=== PATIENT | female | born 1960 | race Caucasian/White ===

== ENCOUNTER 2021-01-22 14:59 | Inpatient (IN) | payer MEDICARE, MEDICAID ==
[~2021-01-22] VITALS: Ht 157.5 cm; Wt 45.0 kg
[2021-01-22] MEDS ORDERED: ONDANSETRON PF 4 MG/2 ML VIAL. IVP PRN (17:30)
[2021-01-22] MEDS ORDERED: fentaNYL PF VIAL 100 MCG/2 ML VIAL IVP PRN (17:30)
[2021-01-22 17:34] VITALS: BP 128/62
[2021-01-22 18:20] LABS: BASO % 0 % (0-3); EOS % 0 % (0-3); HEMATOCRIT 21.5 % (36.0-47.0); LYMPH # 0.4 x10^3/uL (1.0-4.8); LYMPH % 5 % (24-48); MEAN CORPUSCULAR HEMOGLOBIN 27 pg (25-35); MEAN CORPUSCULAR HGB CONC 32 g/dL (31-37); MEAN CORPUSCULAR VOLUME 87 fL (79-100); MONO # 0.6 x10^3/uL (0.0-1.1); MONO % 8 % (0-9); NEUT # 7.4 x10^3/uL (1.8-7.7); NEUT % 87 % (31-73); PLATELET COUNT 524 x10^3/uL (140-400); RED BLOOD COUNT 2.47 x10^6/uL (3.50-5.40); RED CELL DISTRIBUTION WIDTH 18.4 % (11.5-14.5); WHITE BLOOD COUNT 8.5 x10^3/uL (4.0-11.0)
[2021-01-22] MEDS: IV RINGERS,LACTATED 1000ML 1,000 ML IV SCH (18:24)
[2021-01-22] MEDS: PIPERACILLIN/TAZOBACTAM 3.375 GM in IV NORMAL SALINE 50ML 50 ML IV SCH (18:25)
[2021-01-22 18:32] LABS: CALCIUM 8.2 mg/dL (8.5-10.1); CREATININE 0.5 mg/dL (0.6-1.0); GFR 125.9; POTASSIUM 3.6 mmol/L (3.5-5.1)
[2021-01-22 18:37] LABS: HEMOGLOBIN 6.8 g/dL (12.0-15.5)
[2021-01-22 19:00] VITALS: BP 111/57
[2021-01-22] MEDS ORDERED: FOLI0.8C PO (19:25)
[2021-01-22] MEDS ORDERED: MORP15TA PO (19:25)
[2021-01-22 19:33] LABS: % BASOS 1 % (0-3); % LYMPHS 8 % (24-48); % MONOS 9 % (0-10); % SEGS 82 % (35-66)
[2021-01-22 19:35] LABS: PLT ESTIMATE INCREASED (ADEQUATE)
[2021-01-22 19:38] LABS: ANISOCYTOSIS SLIGHT
[2021-01-22 19:39] LABS: POLYCHROMASIA SLIGHT
[2021-01-22 19:40] LABS: MICROCYTOSIS SLIGHT
[2021-01-22] MEDS: PANTOPRAZOLE IV PUSH 40 MG VIAL. IVP SCH (21:07)
[2021-01-22 23:11] VITALS: BP 102/74
[2021-01-22 23:20] VITALS: BP 132/59
[2021-01-22 23:35] VITALS: BP 150/49
[2021-01-23] VITALS (8 sets, daily range): BP systolic 111–152; BP diastolic 57–103
[2021-01-23] MEDS: IV RINGERS,LACTATED 1000ML 1,000 ML IV SCH ×3 (04:00→23:27)
[2021-01-23] MEDS: PIPERACILLIN/TAZOBACTAM 3.375 GM in IV NORMAL SALINE 50ML 50 ML IV SCH ×5 (06:00→23:27)
[2021-01-23] MEDS: AZITHROMYCIN 250 MG in IV NORMAL SALINE 250ML 250 ML IV SCH (06:30)
[2021-01-23 06:59] LABS: CALCIUM 8.7 mg/dL (8.5-10.1); CREATININE 0.6 mg/dL (0.6-1.0); POTASSIUM 3.2 mmol/L (3.5-5.1)
[2021-01-23 07:00] LABS: BASO % 0 % (0-3); EOS % 0 % (0-3); HEMATOCRIT 27.5 % (36.0-47.0); HEMOGLOBIN 8.6 g/dL (12.0-15.5); LYMPH # 0.7 x10^3/uL (1.0-4.8); LYMPH % 9 % (24-48); MEAN CORPUSCULAR HEMOGLOBIN 27 pg (25-35); MEAN CORPUSCULAR HGB CONC 31 g/dL (31-37); MEAN CORPUSCULAR VOLUME 86 fL (79-100); MONO # 0.8 x10^3/uL (0.0-1.1); MONO % 11 % (0-9); NEUT # 5.6 x10^3/uL (1.8-7.7); NEUT % 80 % (31-73); PLATELET COUNT 547 x10^3/uL (140-400); RED CELL DISTRIBUTION WIDTH 18.9 % (11.5-14.5); WHITE BLOOD COUNT 7.1 x10^3/uL (4.0-11.0)
--- NOTE | 2021-01-23 08:47 | PDOC2 ---
GI CONSULT Date of Service: DATE: 01/23/21 TIME: 08:46 Reason For Consult: anemia, low Hgb HPI: HPI: 60 y/o female from [facility]. Reviewed records from there - ER note indicates brought for evaluation for falls, weakness, concern for head injury per family. Chest CT showed multifocal nodulate and groundglass opacities most prominent in RLL w/ mucous plugging and debris in bronchi and emphysema. CT head noted posterior periventricular hypoattenuation involving the parietal occipital lobes bilaterally. Also noted w/ anemia which is why we are asked to see. Labs @ [facility] noted WBC 15.9, Hgb 8.1, BUN 13, Alk Phos 130 (otherwise normal LFTs), normal lipase, tox screen +opiates only. CT A/P was without acute abnormality but noted distended GB w/ mild intrahepatic ductal dilatation and large amount of stool throughout colon. Hgb drift to 6.8 here, transfused 1 unit pRBCs, now 8.6. No bleeding per nurse. History is difficult this morning - she is drowsy, not forthcoming, focused on leg pain. She is unaware of any h/o anemia. Denies reflux, dysphagia, n/v, diarrhea, constipation, hematochezia, and melena. Possible weight loss, decreased appetite. Reports "stomach pain" - ?after eatin g - difficult to clarify this. No previous EGD or colonoscopy. Denies GB, liver, pancreas, and PUD history. H/o chronic BLE pain on morphine. Not on O2 at home. PMH: PMH: per chart: COPD, anxiety, chronic pain Social History: Smoke: 1 pack per day ALCOHOL: none Drugs: None ROS: difficult to obtain RESP: +cough GI: Per HPI ENDO: +weight loss MSK: +leg pain Vitals: Vitals: Vital Signs Date Time Temp Pulse Resp B/P (MAP) Pulse Ox O2 Delivery O2 Flow Rate FiO2 01/23/21 07:00 98.4 64 20 120/103 (109) 84 Nasal Cannula 3.0 98.4 Labs: Labs: Laboratory Tests Test 01/22/21 18:10 01/23/21 04:40 White Blood Count 8.5 x10^3/uL (4.0-11.0) 7.1 x10^3/uL (4.0-11.0) Red Blood Count 2.47 x10^6/uL (3.50-5.40) 3.20 x10^6/uL (3.50-5.40) Hemoglobin 6.8 g/dL (12.0-15.5) 8.6 g/dL (12.0-15.5) Hematocrit 21.5 % (36.0-47.0) 27.5 % (36.0-47.0) Mean Corpuscular Volume 87 fL (79-100) 86 fL (79-100) Mean Corpuscular Hemoglobin 27 pg (25-35) 27 pg (25-35) Mean Corpuscular Hemoglobin Concent 32 g/dL (31-37) 31 g/dL (31-37) Red Cell Distribution Width 18.4 % (11.5-14.5) 18.9 % (11.5-14.5) Platelet Count 524 x10^3/uL (140-400) 547 x10^3/uL (140-400) Neutrophils (%) (Auto) 87 % (31-73) 80 % (31-73) Lymphocytes (%) (Auto) 5 % (24-48) 9 % (24-48) Monocytes (%) (Auto) 8 % (0-9) 11 % (0-9) Eosinophils (%) (Auto) 0 % (0-3) 0 % (0-3) Basophils (%) (Auto) 0 % (0-3) 0 % (0-3) Neutrophils # (Auto) 7.4 x10^3/uL (1.8-7.7) 5.6 x10^3/uL (1.8-7.7) Lymphocytes # (Auto) 0.4 x10^3/uL (1.0-4.8) 0.7 x10^3/uL (1.0-4.8) Monocytes # (Auto) 0.6 x10^3/uL (0.0-1.1) 0.8 x10^3/uL (0.0-1.1) Eosinophils # (Auto) 0.0 x10^3/uL (0.0-0.7) 0.0 x10^3/uL (0.0-0.7) Basophils # (Auto) 0.0 x10^3/uL (0.0-0.2) 0.0 x10^3/uL (0.0-0.2) Segmented Neutrophils % 82 % (35-66) Lymphocytes % 8 % (24-48) Monocytes % 9 % (0-10) Basophils % 1 % (0-3) Platelet Estimate Increased (ADEQUATE) Large Platelets Occ Polychromasia Slight Anisocytosis Slight Microcytosis Slight Macrocytosis Slight Sodium Level 139 mmol/L (136-145) 143 mmol/L (136-145) Potassium Level 3.6 mmol/L (3.5-5.1) 3.2 mmol/L (3.5-5.1) Chloride Level 103 mmol/L (98-107) 106 mmol/L (98-107) Carbon Dioxide Level 28 mmol/L (21-32) 26 mmol/L (21-32) Anion Gap 8 (6-14) 11 (6-14) Blood Urea Nitrogen 6 mg/dL (7-20) 7 mg/dL (7-20) Creatinine 0.5 mg/dL (0.6-1.0) 0.6 mg/dL (0.6-1.0) Estimated GFR (Cockcroft-Gault) 125.9 102.0 Glucose Level 102 mg/dL (70-99) 96 mg/dL (70-99) Calcium Level 8.2 mg/dL (8.5-10.1) 8.7 mg/dL (8.5-10.1) Allergies: Coded Allergies: No Known Drug Allergies (Unverified , 01/22/21) Medications: Current Medications Medications (Trade) Dose Ordered Sig/Kristine Route PRN Reason Start Time Stop Time Status Last Admin Dose Admin Ringer's Solution 1,000 ml @ 100 mls/hr Q10H IV 01/22/21 18:00 01/23/21 04:00 Azithromycin 250 mg/Sodium Chloride 250 ml @ 250 mls/hr Q24H IV 01/23/21 06:30 01/23/21 06:30 Piperacillin Sod/ Tazobactam Sod 3.375 gm/Sodium Chloride 50 ml @ 100 mls/hr Q6HRS IV 01/22/21 18:00 01/23/21 06:00 Olanzapine (ZyPREXA ZYDIS) 2.5 mg PRN Q4HRS PRN PO ANXIETY / AGITATION 01/22/21 17:30 01/22/21 21:06 Pantoprazole Sodium (PROTONIX VIAL for IV PUSH) 40 mg BIDAC IVP 01/22/21 19:00 01/22/21 21:07 Imaging: Imaging: per HPI PE: GEN: uncomfortable HEENT: ?thrush LUNGS: diminished anteriorly, NC HEART: RRR ABD: quiet, soft, vague discomfort - non-specific EXTREMITY: No edema SKIN: toenails long, skin dry NEURO/PSYCH: answers most questions appropriately, knows she's "in a hospital" and the correct year A/P: A/P: Weakness, AMS, resp failure/pneumonia, ?abd pain Leukocytosis (resolved), normocytic anemia requiring transfusion Constipation on CT - ?opioid-induced CRC screen - none Distended GB on CT - normal LFTs except Alk Phos 130 Chronic pain on home morphine -- Difficult to obtain history. Address pulm issues. Chronic pain problems per primary. Check anemia parameters. Follow Hgb, transfuse as needed. Agree w/ acid-labeler - IV okay for now, change to PO as able. Address constipation - try Relistor. Check ammonia w/ confusion - ?too much morphine at home Okay for clears, ADAT/observe per GI - d/w nurse - speech to see. Will plan for outpt 'scopes. DANY FUENTES Jan 23, 2021 08:47
[2021-01-23] MEDS: PANTOPRAZOLE IV PUSH 40 MG VIAL. IVP SCH ×2 (08:53→17:26)
--- NOTE | 2021-01-23 09:59 | NUR ---
SW following. Discussed with RN, pt from home, 3L (does not use at home), NPO, rapid COVID-19 negative. PT/OT/ST ordered. Pt still lethargic, got blood last night. RN advised no SW needs at this time. SW will continue to follow.
--- NOTE | 2021-01-23 11:12 | NUR ---
Bedside Swallow Evaluation completed. Please refer to full report in intervention section for additional information. Impressions: Swallow appears functional and safe w/ minimal oropharyngeal concerns. No s/s aspiration including impulsive large volume drinking of thin liquid and bites of puree when pt self feeding. Pt is impulsive and impulsivity may increase risk of aspiration. Pt states she prefers soft foods. Recommendations: GI soft diet w/ thin liquids. ST f/u for dysphagia. d/w RN, Dr. Martins, Ling Ledesma
[2021-01-23] MEDS ORDERED: POTASSIUM CHLORIDE 20 MEQ TABLET.ER. PO ONE (11:30)
[2021-01-23] MEDS ORDERED: METHYLNALTREXONE 12 MG/0.6 ML VIAL. SQ ONE (11:30)
--- NOTE | 2021-01-23 11:32 | HP ---
ADMIT DATE: 01/23/2021 HISTORY OF PRESENT ILLNESS: The patient is a 60-year-old female patient who presented to the Emergency Room of [facility] with weakness. Her daughter stated that she was trying to help her get on to boat and she was so weak, she fell. She got bad back pain, takes morphine for it. She kind of hit her head and left side of the chest. The patient came with above complaint of fall to the Emergency Room. She is known to have chronic back pain and leg pain. She was complaining of pain, left-sided chest wall and also lower back pain; however, she denied any history of fever or chills. No recent travel. No specific ill contact. She initially refused treatment, refused EKG, labs or x-rays. She normally follows with Dr. Chua. Her daughter initially did not want to make any decisions on treating or evaluating against her will; however, it was felt that the patient has no capacity to make a decision and this was discussed with her daughter and she had a conference by phone with her sister and a decision was made to go ahead and evaluate the patient against her will since it is consensus that she lacks the capacity to make decision. This was explained to the patient, she allowed nursing staff to draw labs and x-rays. She was extensively investigated in the Emergency Room, has had lab work, which showed a white cell count of 15,900. She has normochromic normocytic anemia and thrombocytosis. Her blood gases showed that she has acute hypoxic respiratory failure. Urinalysis is essentially unremarkable and toxic screen was positive for opiates, but negative for all other drugs. Her chemistry was essentially unremarkable. She had had extensive imaging including acute abdomen series which showed patchy bibasilar opacities, right greater than left. No pneumothorax, no pleural effusion, normal heart size, no pneumoperitoneum. Mild small bowel gas, air, stool throughout the colon, large colonic stool burden. She had a CT scan of the chest, abdomen and pelvis with contrast. Chest CT showed multifocal nodular and ground glass opacities, most prominent within the right lower lobe with mucus plugging and debris, bronchi concerning for aspiration or superimposed infectious process. She has also pulmonary emphysema. The CT scan of the abdomen and pelvis showed no acute abdominal or pelvic pathology, distended gallbladder. Ultrasound can further evaluate for concern for right upper quadrant pain, large amount of stool throughout the colon. A CT scan of the lumbar spine showed no acute fracture or subluxation of the lumbar spine. The patient has also a CT scan of the head which showed that there is no acute intracranial hemorrhage, posterior periventricular hypoattenuation involving the parietal and occipital lobes bilaterally can be seen with posterior reversible encephalopathy syndrome or sequelae of chronic microvascular ischemia. MRI can further evaluate as clinically indicated. CT scan of the cervical spine showed no definite acute fracture. Although evaluation is degraded due to patient motion, persistent clinical concern, recommend followup and the patient has multilevel cervical spondylosis. The CT scan of the lumbar spine again showed no acute fracture or subluxation of the lumbar spine. The patient was treated with IV antibiotic and transferred to [facility] for further evaluation and treatment. PAST MEDICAL HISTORY: Significant for chronic obstructive pulmonary disease, fibromyalgia, gastroesophageal reflux disease, gallstones, anemia, anxiety and osteoarthritis. PAST SURGICAL HISTORY: Unremarkable. She has also chronic back pain. FAMILY HISTORY: Noncontributory. SOCIAL HISTORY: She is and lives with her and her kids. She continued to smoke cigarette. She does not drink alcohol or recreational drugs. ALLERGIES: She has no known drug allergies. MEDICATIONS: She is currently on following medications: She is currently on morphine sulfate 15 mg twice a day and folic acid 800 mcg once a day. REVIEW OF SYSTEMS: As per history of present illness. PHYSICAL EXAMINATION: GENERAL: On arrival to the Emergency Room of [facility], the patient looked pale, but no jaundice or cyanosis, no lymphadenopathy, no thyromegaly, no jugular venous distention. No limb edema. VITAL SIGNS: Her heart rate was 94, blood pressure was 108/61, temperature was 100.2, respiratory rate was 22 and oxygen saturation was 94% on 2 liters of oxygen. HEAD, EYES, EARS, NOSE AND THROAT: Normocephalic, atraumatic. NECK: Supple. HEART: Showed normal first and second heart sounds, no gallop or murmur. CHEST: Clear to auscultation, no crepitation or rhonchi. ABDOMEN: Distended, soft, nontender, no guarding or rigidity. No organomegaly. All hernial orifice intact. Bowel sounds normal. NEUROLOGIC: She is awake, alert, responding appropriately. All cranial nerves intact. She moves extremities without difficulty, although she is mostly bedbound. LABORATORY DATA: On arrival to the Emergency Room showed that her white cell count was 15,900, hemoglobin 8.1, hematocrit 26.4, MCV 88 and platelet count of 673,000 with automated differential showed 91% polymorphs, 3% lymphocytes and 6% monocytes. Her arterial blood gas showed a pH of 7.45, pCO2 of 31, pO2 of 46, bicarbonate 22 and oxygen saturation was 82% on room air. Her chemistry showed a serum sodium 136, potassium 4.4, chloride 100, bicarbonate 24, anion gap of 12, BUN 13, creatinine 0.6. Estimated GFR was 102 mL per minute. Her glucose was 103. Lactic acid is 1.6. Calcium was 8.8. Total bilirubin, AST, ALT normal. Alkaline phosphatase slightly elevated. CK was 51. Total protein 6.8, albumin 3.1. Urinalysis essentially unremarkable and toxic screen was positive for opiates. Her SARS-COVID by PCR was negative. We did blood cultures, so far showed no growth. ASSESSMENT AND PLAN: The patient was basically transferred to [facility] with aspiration pneumonia, altered mental status, acute hypoxic respiratory failure. I did actually start her on IV Zosyn together with Zithromax and we will consult the speech therapist, infectious disease specialist and the neurologist together with physical and occupational therapist. JULIEN DR: Michelle TID: [id number]
[2021-01-23 12:08] LABS: HEMATOCRIT 26.8 % (36.0-47.0); HEMOGLOBIN 8.6 g/dL (12.0-15.5)
--- NOTE | 2021-01-23 13:01 | PDOC2 ---
NEUROLOGY CONSULT Date of Service DOS: DATE: 01/23/21 TIME: 12:50 Reason for Consult Reason for Consult: Possible posterior reversible encephalopathy syndrome Referring Physician Referring Physician: Dr. Martins Source Source: Chart review, Patient History of Present Illness History of Present Illness The patient is a 60-year-old right-handed female with chronic back and leg pain with diagnoses of fibromyalgia and neuropathy. Patient's daughter was trying to help her get onto a boat and she was weak and fell. Generally the patient uses a walker. She may have struck the side of her head. She did not lose consciousness. Patient was brought to the [facility] emergency room. At first she refused treatment but then consented. She was found to have leukocytosis, severe anemia, thrombocytosis, hypoxic respiratory failure, urine drug screen positive for opiates. I am asked to see her for abnormal head CT as reviewed below. Patient saw neurologist in [place] years ago regarding a diagnosis of neuropathy. She was never told the cause. She denies headache, diplopia, dysphagia, dysarthria, history of stroke, seizure, or significant head injury. Past Medical History Pulmonary: COPD GI: GERD Heme/Onc: Anemia NOS Hepatobiliary: Cholelithiasis Psych: Anxiety Musculoskeletal: Osteoarthritis Rheumatologic: Fibromyalgia Renal/: UTI, Urinary Incontinence Past Surgical History Past Surgical History: No pertinent history Family History Family History: No pertinent hx (Negative for neuropathy) Social History Social History Has lived with significant other for over 30 years, used to drink heavily in her 20s, still smokes cigarettes, disabled Current Medications Current Medications Current Medications Ringer's Solution 1,000 ml @ 100 mls/hr Q10H IV Last administered on 01/23/21at 04:00; Start 01/22/21 at 18:00 Azithromycin 250 mg/Sodium Chloride 250 ml @ 250 mls/hr Q24H IV Last administe red on 01/23/21at 06:30; Start 01/23/21 at 06:30 Piperacillin Sod/ Tazobactam Sod 3.375 gm/Sodium Chloride 50 ml @ 100 mls/hr Q6HRS IV Last administered on 01/23/21at 06:00; Start 01/22/21 at 18:00 Fentanyl Citrate (Fentanyl 2ml Vial) 50 mcg PRN Q4HRS PRN IVP PAIN; Start 01/22/21 at 17:30 Ondansetron HCl (Zofran) 4 mg PRN Q4HRS PRN IVP NAUSEA/VOMITING; Start 01/22/21 at 17:30 Olanzapine (ZyPREXA ZYDIS) 2.5 mg PRN Q4HRS PRN PO ANXIETY / AGITATION Last administered on 01/22/21at 21:06; Start 01/22/21 at 17:30 Pantoprazole Sodium (PROTONIX VIAL for IV PUSH) 40 mg BIDAC IVP Last administered on 01/23/21at 08:53; Start 01/22/21 at 19:00 Potassium Chloride (Klor-Con) 40 meq 1X ONCE PO ; Start 01/23/21 at 11:30; Stop 01/23/21 at 11:31; Status DC Potassium Chloride (Klor-Con) 20 meq TID PO ; Start 01/23/21 at 14:00 Methylnaltrexone [place] (Relistor) 12 mg 1X ONCE SQ ; Start 01/23/21 at 11:30; Stop 01/23/21 at 11:31; Status DC Active Scripts Active Reported Morphine Sulfate 15 Mg Tablet 1 Tab PO BID Folic Acid 0.8 Mg Capsule 1 Cap PO DAILY 30 Days Allergies Allergies: Coded Allergies: No Known Drug Allergies (Unverified , 01/22/21) ROS Review of System Negative for fever, chills, weight loss, shortness of breath, chest pain, indigestion, hematochezia, melena, and dysuria. Full 14-point review of systems is negative. Physical Exam Physical Examination General: Well-developed, well-nourished white female, in no acute distress, looks much older than stated age HEENT: Normocephalic andatraumatic. Temporal arteriespulsatile and nontender.Fundoscopic exam unremarkable Neck: Supple without bruit, no meningismus Musculoskeletal: Stability:see neurologic. Gait exam:see neurologic. Tone:see neurologic.Strength:see neurologic. Neurological: Mental Status: orientation, memory, attention span/concentration, language, fund of knowledge: Does not know name of hospital, knows month, year, not president, names and repeats well.. Cranial Nerves:Pupils equal and reactive to light, extraocular movements areintact, visual ureña are full to confrontation. Normal visual acuity. Facial sensation is normal. There is no facial asymmetry. Vestibulo-ocular reflex is intact. Palate elevates and tongue protrudes in midline. All other cranial related problems are negative except as mentioned before.Reflexes:0-1+ and symmetric with flexor plantar responses. Motor:5/5 strength with normal tone and bulk. Coordination:Finger-nose finger and [id number] testing are normal. Rapid alternating movements and fine finger movements are intact. Gait:Not tested. Sensory:Stocking loss. Vitals VITALS Vital Signs Date Time Temp Pulse Resp B/P (MAP) Pulse Ox O2 Delivery O2 Flow Rate FiO2 01/23/21 11:00 98.3 101 19 152/77 (102) 96 Nasal Cannula 3.0 98.3 Labs Labs Laboratory Tests Test 01/22/21 18:10 01/23/21 04:40 01/23/21 11:55 White Blood Count 8.5 x10^3/uL (4.0-11.0) 7.1 x10^3/uL (4.0-11.0) Red Blood Count 2.47 x10^6/uL (3.50-5.40) 3.17 x10^6/uL (3.50-5.70) Hemoglobin 6.8 g/dL (12.0-15.5) 8.6 g/dL (12.0-15.5) 8.6 g/dL (12.0-15.5) Hematocrit 21.5 % (36.0-47.0) 27.5 % (36.0-47.0) 26.8 % (36.0-47.0) Mean Corpuscular Volume 87 fL (79-100) 86 fL (79-100) Mean Corpuscular Hemoglobin 27 pg (25-35) 27 pg (25-35) Mean Corpuscular Hemoglobin Concent 32 g/dL (31-37) 31 g/dL (31-37) 32 g/dL (31-37) Red Cell Distribution Width 18.4 % (11.5-14.5) 18.9 % (11.5-14.5) Platelet Count 524 x10^3/uL (140-400) 547 x10^3/uL (140-400) Neutrophils (%) (Auto) 87 % (31-73) 80 % (31-73) Lymphocytes (%) (Auto) 5 % (24-48) 9 % (24-48) Monocytes (%) (Auto) 8 % (0-9) 11 % (0-9) Eosinophils (%) (Auto) 0 % (0-3) 0 % (0-3) Basophils (%) (Auto) 0 % (0-3) 0 % (0-3) Neutrophils # (Auto) 7.4 x10^3/uL (1.8-7.7) 5.6 x10^3/uL (1.8-7.7) Lymphocytes # (Auto) 0.4 x10^3/uL (1.0-4.8) 0.7 x10^3/uL (1.0-4.8) Monocytes # (Auto) 0.6 x10^3/uL (0.0-1.1) 0.8 x10^3/uL (0.0-1.1) Eosinophils # (Auto) 0.0 x10^3/uL (0.0-0.7) 0.0 x10^3/uL (0.0-0.7) Basophils # (Auto) 0.0 x10^3/uL (0.0-0.2) 0.0 x10^3/uL (0.0-0.2) Segmented Neutrophils % 82 % (35-66) Lymphocytes % 8 % (24-48) Monocytes % 9 % (0-10) Basophils % 1 % (0-3) Platelet Estimate Increased (ADEQUATE) Large Platelets Occ Polychromasia Slight Anisocytosis Slight Microcytosis Slight Macrocytosis Slight Sodium Level 139 mmol/L (136-145) 143 mmol/L (136-145) Potassium Level 3.6 mmol/L (3.5-5.1) 3.2 mmol/L (3.5-5.1) Chloride Level 103 mmol/L (98-107) 106 mmol/L (98-107) Carbon Dioxide Level 28 mmol/L (21-32) 26 mmol/L (21-32) Anion Gap 8 (6-14) 11 (6-14) Blood Urea Nitrogen 6 mg/dL (7-20) 7 mg/dL (7-20) Creatinine 0.5 mg/dL (0.6-1.0) 0.6 mg/dL (0.6-1.0) Estimated GFR (Cockcroft-Gault) 125.9 102.0 Glucose Level 102 mg/dL (70-99) 96 mg/dL (70-99) Calcium Level 8.2 mg/dL (8.5-10.1) 8.7 mg/dL (8.5-10.1) Absolute Reticulocyte Count 0.085 x10^6/uL (0.020-0.120) Percent Reticulocyte Count 2.7 % (0.5-2.3) Immature Reticulocyte Fraction 0.47 (0.20-0.60) Iron Level 16 ug/dL (50-170) Total Iron Binding Capacity 324 ug/dL (250-450) Iron Saturation 5 % (15-34) Vitamin B12 Level 470 pg/mL (247-911) Ammonia < 10 mcmol/L (11-34) Laboratory Tests Test 01/22/21 18:10 01/23/21 04:40 01/23/21 11:55 White Blood Count 8.5 x10^3/uL (4.0-11.0) 7.1 x10^3/uL (4.0-11.0) Red Blood Count 2.47 x10^6/uL (3.50-5.40) 3.17 x10^6/uL (3.50-5.70) Hemoglobin 6.8 g/dL (12.0-15.5) 8.6 g/dL (12.0-15.5) 8.6 g/dL (12.0-15.5) Hematocrit 21.5 % (36.0-47.0) 27.5 % (36.0-47.0) 26.8 % (36.0-47.0) Mean Corpuscular Volume 87 fL (79-100) 86 fL (79-100) Mean Corpuscular Hemoglobin 27 pg (25-35) 27 pg (25-35) Mean Corpuscular Hemoglobin Concent 32 g/dL (31-37) 31 g/dL (31-37) 32 g/dL (31-37) Red Cell Distribution Width 18.4 % (11.5-14.5) 18.9 % (11.5-14.5) Platelet Count 524 x10^3/uL (140-400) 547 x10^3/uL (140-400) Neutrophils (%) (Auto) 87 % (31-73) 80 % (31-73) Lymphocytes (%) (Auto) 5 % (24-48) 9 % (24-48) Monocytes (%) (Auto) 8 % (0-9) 11 % (0-9) Eosinophils (%) (Auto) 0 % (0-3) 0 % (0-3) Basophils (%) (Auto) 0 % (0-3) 0 % (0-3) Neutrophils # (Auto) 7.4 x10^3/uL (1.8-7.7) 5.6 x10^3/uL (1.8-7.7) Lymphocytes # (Auto) 0.4 x10^3/uL (1.0-4.8) 0.7 x10^3/uL (1.0-4.8) Monocytes # (Auto) 0.6 x10^3/uL (0.0-1.1) 0.8 x10^3/uL (0.0-1.1) Eosinophils # (Auto) 0.0 x10^3/uL (0.0-0.7) 0.0 x10^3/uL (0.0-0.7) Basophils # (Auto) 0.0 x10^3/uL (0.0-0.2) 0.0 x10^3/uL (0.0-0.2) Segmented Neutrophils % 82 % (35-66) Lymphocytes % 8 % (24-48) Monocytes % 9 % (0-10) Basophils % 1 % (0-3) Platelet Estimate Increased (ADEQUATE) Large Platelets Occ Polychromasia Slight Anisocytosis Slight Microcytosis Slight Macrocytosis Slight Sodium Level 139 mmol/L (136-145) 143 mmol/L (136-145) Potassium Level 3.6 mmol/L (3.5-5.1) 3.2 mmol/L (3.5-5.1) Chloride Level 103 mmol/L (98-107) 106 mmol/L (98-107) Carbon Dioxide Level 28 mmol/L (21-32) 26 mmol/L (21-32) Anion Gap 8 (6-14) 11 (6-14) Blood Urea Nitrogen 6 mg/dL (7-20) 7 mg/dL (7-20) Creatinine 0.5 mg/dL (0.6-1.0) 0.6 mg/dL (0.6-1.0) Estimated GFR (Cockcroft-Gault) 125.9 102.0 Glucose Level 102 mg/dL (70-99) 96 mg/dL (70-99) Calcium Level 8.2 mg/dL (8.5-10.1) 8.7 mg/dL (8.5-10.1) Absolute Reticulocyte Count 0.085 x10^6/uL (0.020-0.120) Percent Reticulocyte Count 2.7 % (0.5-2.3) Immature Reticulocyte Fraction 0.47 (0.20-0.60) Iron Level 16 ug/dL (50-170) Total Iron Binding Capacity 324 ug/dL (250-450) Iron Saturation 5 % (15-34) Vitamin B12 Level 470 pg/mL (247-911) Ammonia < 10 mcmol/L (11-34) Images Images [facility], 01/22: CT LUMBAR SPINE WO, CT CHEST+ABD+PELVIS W Chest: No aortic aneurysm, dissection or injury. Mild atheromatous plaque within the aorta. Coronary artery calcifications. Mildly enlarged mediastinal lymph nodes largest precarinal lymph node measures 1.6 x 1.1 cm. Mildly enlarged right hilar lymph nodes. Small hiatal hernia. Pulmonary emphysema. Multifocal groundglass opacities within the lower and right middle lobes most prominent within the right lower lobe. Multifocal mucus plugging with debris in the inferior bronchi. Tree-in-bud nodularity within the right lower lobe with peripheral consolidations. No pneumothorax. No pleural effusion. Abdomen and pelvis: Distended gallbladder. Mild intrahepatic ductal dilatation. Normal caliber common bile duct. The spleen, adrenal glands, and pancreas are unremarkable. Duodenal diverticulum is noted. Left parapelvic renal cysts. No hydronephrosis. No renal calculi. Large amount of stool throughout the colon. Normal appendix. No evidence of bowel obstruction. No pathologic lymphadenopathy. No ascites. Atheromatous plaque throughout the nonaneurysmal abdominal aorta and branch vessels. Bones: No pathologic osseous lesions. Lumbar spine CT: Normal vertebral body height. Multilevel Schmorl's nodes. No acute fracture. Mild degenerative disc changes. No significant canal or neuroforaminal narrowing. Impression: Chest CT: 1. Multifocal nodular and groundglass opacities most prominent within the right lower lobe with mucous plugging and debris the bronchi, concerning for aspiration and superimposed infectious process is possible. 2. Pulmonary emphysema. Abdomen and pelvis CT: 1. No acute abdominal or pelvic pathology. 2. Distended gallbladder. Ultrasound can further evaluate if concern for right upper quadrant pain. 3. Large amount of stool throughout the colon. Lumbar spine CT: 1. No acute fracture or subluxation of the lumbar spine. CT HEAD AND C-SPINE WO Head CT: No intracranial hemorrhage. No mass effect. No hydrocephalus. Posterior periventricular hypoattenuation involving the parietal occipital lobe bilaterally. Imaged orbits are unremarkable. Imaged paranasal sinuses and mastoid air cells are clear. No acute calvarial fracture. Cervical spine CT: Motion degraded evaluation. Normal vertebral body alignment. Normal height. No definite fracture although evaluation is degraded due to patient motion. Multilevel degenerative disc changes most prominent C5-C6 and C6-C7. Multilevel facet arthropathy. No high-grade canal stenosis. Multilevel neuroforaminal narrowing. Chronic ununited C1 posterior arch Mild pulmonary emphysema. Impression: Head CT: 1. No acute intracranial hemorrhage. 2. Posterior periventricular hypoattenuation involving the parietal occipital lobes bilaterally, can be seen with posterior reversible encephalopathy syndrome or sequela chronic microvascular ischemia. MRI can further evaluate as clinically warranted. Cervical spine CT: 1. No definite acute fracture although evaluation is degraded due to patient motion. If persistent clinical concern, recommend follow-up. 2. Multilevel cervical spondylosis. Assessment/Plan Assessment/Plan Impression: Abnormal head CT, I reviewed the images, the white matter changes are nonspecific. Patient is alert, just a little confused, has no focal neurolo gical signs, specifically no visual changes that are acute. I highly doubt posterior reversible encephalopathy. The treatment for this condition is treating the underlying medical issues anyway. Metabolic encephalopathy Indeed, she has a number of medical issues including pneumonia, leukocytosis, severe anemia, hypoxia in the setting of COPD and pneumonia. She also has peripheral neuropathy which may be from her previous alcohol use as other work-up was negative. Fibromyalgia and chronic back pain, no evidence of acute radiculopathy. Multiple other medical issues as listed above. Recommendations: Treat medical diseases Await laboratory studies Hold off on MRI of the brain or lumbar puncture Rehabilitation modalities. Thank you for letting me help with the patient's care. BRANDON MOSQUEDA MD Jan 23, 2021 13:01
[2021-01-23] MEDS: POTASSIUM CHLORIDE 20 MEQ TABLET.ER. PO SCH ×2 (14:27→21:00)
[2021-01-23 14:58] LABS: FECAL OB PT NEGATIVE (NEG)
[2021-01-23 18:29] LABS: HEMATOCRIT 24.5 % (36.0-47.0); HEMOGLOBIN 7.9 g/dL (12.0-15.5)
--- NOTE | 2021-01-23 18:49 | PDOC ---
PULMONARY PROGRESS NOTES DATE: 01/23/21 TIME: 18:48 Vitals Vital Signs Date Time Temp Pulse Resp B/P (MAP) Pulse Ox O2 Delivery O2 Flow Rate FiO2 01/23/21 15:00 98.6 93 18 130/76 (94) 95 Nasal Cannula 3.0 98.6 Labs Laboratory Tests Test 01/22/21 18:10 01/23/21 04:40 01/23/21 11:55 01/23/21 14:29 White Blood Count 8.5 x10^3/uL (4.0-11.0) 7.1 x10^3/uL (4.0-11.0) Red Blood Count 2.47 x10^6/uL (3.50-5.40) 3.17 x10^6/uL (3.50-5.70) Hemoglobin 6.8 g/dL (12.0-15.5) 8.6 g/dL (12.0-15.5) 8.6 g/dL (12.0-15.5) Hematocrit 21.5 % (36.0-47.0) 27.5 % (36.0-47.0) 26.8 % (36.0-47.0) Mean Corpuscular Volume 87 fL (79-100) 86 fL (79-100) Mean Corpuscular Hemoglobin 27 pg (25-35) 27 pg (25-35) Mean Corpuscular Hemoglobin Concent 32 g/dL (31-37) 31 g/dL (31-37) 32 g/dL (31-37) Red Cell Distribution Width 18.4 % (11.5-14.5) 18.9 % (11.5-14.5) Platelet Count 524 x10^3/uL (140-400) 547 x10^3/uL (140-400) Neutrophils (%) (Auto) 87 % (31-73) 80 % (31-73) Lymphocytes (%) (Auto) 5 % (24-48) 9 % (24-48) Monocytes (%) (Auto) 8 % (0-9) 11 % (0-9) Eosinophils (%) (Auto) 0 % (0-3) 0 % (0-3) Basophils (%) (Auto) 0 % (0-3) 0 % (0-3) Neutrophils # (Auto) 7.4 x10^3/uL (1.8-7.7) 5.6 x10^3/uL (1.8-7.7) Lymphocytes # (Auto) 0.4 x10^3/uL (1.0-4.8) 0.7 x10^3/uL (1.0-4.8) Monocytes # (Auto) 0.6 x10^3/uL (0.0-1.1) 0.8 x10^3/uL (0.0-1.1) Eosinophils # (Auto) 0.0 x10^3/uL (0.0-0.7) 0.0 x10^3/uL (0.0-0.7) Basophils # (Auto) 0.0 x10^3/uL (0.0-0.2) 0.0 x10^3/uL (0.0-0.2) Segmented Neutrophils % 82 % (35-66) Lymphocytes % 8 % (24-48) Monocytes % 9 % (0-10) Basophils % 1 % (0-3) Platelet Estimate Increased (ADEQUATE) Large Platelets Occ Polychromasia Slight Anisocytosis Slight Microcytosis Slight Macrocytosis Slight Sodium Level 139 mmol/L (136-145) 143 mmol/L (136-145) Potassium Level 3.6 mmol/L (3.5-5.1) 3.2 mmol/L (3.5-5.1) Chloride Level 103 mmol/L (98-107) 106 mmol/L (98-107) Carbon Dioxide Level 28 mmol/L (21-32) 26 mmol/L (21-32) Anion Gap 8 (6-14) 11 (6-14) Blood Urea Nitrogen 6 mg/dL (7-20) 7 mg/dL (7-20) Creatinine 0.5 mg/dL (0.6-1.0) 0.6 mg/dL (0.6-1.0) Estimated GFR (Cockcroft-Gault) 125.9 102.0 Glucose Level 102 mg/dL (70-99) 96 mg/dL (70-99) Calcium Level 8.2 mg/dL (8.5-10.1) 8.7 mg/dL (8.5-10.1) Absolute Reticulocyte Count 0.085 x10^6/uL (0.020-0.120) Percent Reticulocyte Count 2.7 % (0.5-2.3) Immature Reticulocyte Fraction 0.47 (0.20-0.60) Iron Level 16 ug/dL (50-170) Total Iron Binding Capacity 324 ug/dL (250-450) Iron Saturation 5 % (15-34) Vitamin B12 Level 470 pg/mL (247-911) Ammonia < 10 mcmol/L (11-34) Stool Occult Blood Negative (NEG) Test 01/23/21 17:42 Hemoglobin 7.9 g/dL (12.0-15.5) Hematocrit 24.5 % (36.0-47.0) Mean Corpuscular Hemoglobin Concent 32 g/dL (31-37) Laboratory Tests Test 01/23/21 04:40 01/23/21 11:55 01/23/21 14:29 01/23/21 17:42 White Blood Count 7.1 x10^3/uL (4.0-11.0) Red Blood Count 3.17 x10^6/uL (3.50-5.70) Hemoglobin 8.6 g/dL (12.0-15.5) 8.6 g/dL (12.0-15.5) 7.9 g/dL (12.0-15.5) Hematocrit 27.5 % (36.0-47.0) 26.8 % (36.0-47.0) 24.5 % (36.0-47.0) Mean Corpuscular Volume 86 fL (79-100) Mean Corpuscular Hemoglobin 27 pg (25-35) Mean Corpuscular Hemoglobin Concent 31 g/dL (31-37) 32 g/dL (31-37) 32 g/dL (31-37) Red Cell Distribution Width 18.9 % (11.5-14.5) Platelet Count 547 x10^3/uL (140-400) Neutrophils (%) (Auto) 80 % (31-73) Lymphocytes (%) (Auto) 9 % (24-48) Monocytes (%) (Auto) 11 % (0-9) Eosinophils (%) (Auto) 0 % (0-3) Basophils (%) (Auto) 0 % (0-3) Neutrophils # (Auto) 5.6 x10^3/uL (1.8-7.7) Lymphocytes # (Auto) 0.7 x10^3/uL (1.0-4.8) Monocytes # (Auto) 0.8 x10^3/uL (0.0-1.1) Eosinophils # (Auto) 0.0 x10^3/uL (0.0-0.7) Basophils # (Auto) 0.0 x10^3/uL (0.0-0.2) Absolute Reticulocyte Count 0.085 x10^6/uL (0.020-0.120) Percent Reticulocyte Count 2.7 % (0.5-2.3) Immature Reticulocyte Fraction 0.47 (0.20-0.60) Sodium Level 143 mmol/L (136-145) Potassium Level 3.2 mmol/L (3.5-5.1) Chloride Level 106 mmol/L (98-107) Carbon Dioxide Level 26 mmol/L (21-32) Anion Gap 11 (6-14) Blood Urea Nitrogen 7 mg/dL (7-20) Creatinine 0.6 mg/dL (0.6-1.0) Estimated GFR (Cockcroft-Gault) 102.0 Glucose Level 96 mg/dL (70-99) Calcium Level 8.7 mg/dL (8.5-10.1) Iron Level 16 ug/dL (50-170) Total Iron Binding Capacity 324 ug/dL (250-450) Iron Saturation 5 % (15-34) Vitamin B12 Level 470 pg/mL (247-911) Ammonia < 10 mcmol/L (11-34) Stool Occult Blood Negative (NEG) Medications Active Scripts Medications Dose Route/Sig Max Daily Dose Days Date Category Morphine Sulfate 15 Mg Tablet 1 Tab PO BID 01/22/21 Reported Folic Acid 0.8 Mg Capsule 1 Cap PO DAILY 30 01/22/21 Reported Impression . full consult dictated aspiration pn agree with current rx DARON PRESTON MD Jan 23, 2021 18:49
[2021-01-23] MEDS: LACTOBACILLUS RHAMNOSUS GG 1 CAPSULE. PO SCH (21:26)
[2021-01-23] MEDS ORDERED: MAGNESIUM CITRATE 296 ML SOLUTION. PO ONE (22:30)
--- NOTE | 2021-01-23 22:45 | PN ---
DATE: 01/16/2021 SUBJECTIVE: The patient is resting up in her recliner in no apparent distress. She continued to complain of low back pain, continued to have moist cough, but denied any chest pain or shortness of breath. PHYSICAL EXAMINATION: GENERAL: When I examined her, she was pale, somewhat cachectic, but no jaundice, cyanosed or thyromegaly. No jugular venous distention. No limb edema. VITAL SIGNS: Her heart rate was 64, blood pressure was 120/103, temperature was 98.4, respiratory rate was 20 and oxygen saturation was 97% on 3 liters of oxygen. HEAD, EYES, EARS, NOSE AND THROAT: Normocephalic, atraumatic. NECK: Supple. HEART: Showed normal first and second heart sounds. No gallop, rub or murmur. CHEST: Clear to auscultation, no crepitation or rhonchi. ABDOMEN: Distended, soft, nontender. No guarding or rigidity. No organomegaly. All hernial orifice intact. Bowel sounds normal. NEUROLOGIC: She was awake, alert, responding appropriately. Cranial nerves intact. She moves extremities without difficulty, although she is mostly bedbound, chair bound. LABORATORY DATA: Her lab work this morning showed a white cell count 7100, hemoglobin 8.6, hematocrit 27.7, MCV 86 and platelet count of 547,000 with automated differential showed 80% polymorphs, 5% lymphocytes and 11% monocytes. Her chemistry showed a serum sodium 143, potassium 3.2, chloride 106, bicarbonate 26, anion gap of 11, BUN 7 and creatinine 0.6. Estimated GFR was 102 mL per minute. Her glucose was 96 and calcium was 8.7. ASSESSMENT: 1. Mechanical fall. 2. Chronic back pain. 3. Community-acquired pneumonia versus aspiration pneumonia. PLAN: We will continue with IV antibiotic in the form of Zosyn and Zithromax. The patient seems to be responding. Her white cell count is down. She is afebrile today. The patient has some abnormal findings on CT scan and I will consult the neurologist as well as physical and occupational therapy. She was seen by the speech therapist and she is now on a GI soft thin liquid diet. BRIA DR: Michelle TID: [id number]
[2021-01-24 03:00] VITALS: BP 127/62
[2021-01-24] MEDS: IV RINGERS,LACTATED 1000ML 1,000 ML IV SCH ×2 (04:45→17:14)
[2021-01-24] MEDS: PIPERACILLIN/TAZOBACTAM 3.375 GM in IV NORMAL SALINE 50ML 50 ML IV SCH ×3 (04:46→17:14)
--- NOTE | 2021-01-24 06:19 | CONS ---
DATE OF CONSULTATION: 01/23/2021 ATTENDING PHYSICIAN: Dr. Martins. REASON FOR CONSULTATION: The patient is seen in pulmonary consultation at the request of Dr. Martins for abnormal CT chest with hypoxemia, aspiration pneumonia. HISTORY OF PRESENT ILLNESS: The patient is a 60-year-old that was somewhat of a poor historian. She has been sick for quite some day. She presented to [facility] with weakness. She was also having some difficulty with falls. She has chronic back pain and leg pain. She normally follows with Dr. Chua. The patient was evaluated, had a white count of 15,000. She was hypoxic. UA was essentially unremarkable. She had a CT chest, abdomen and pelvis. CT chest showed multifocal nodular and ground glass opacities. There was also debris within the right lower lobe bronchus. The patient's CT abdomen and pelvis showed no pathology. The patient was transferred to [facility] for further management. She was started on IV antibiotics. I was asked to see her in consult. The patient is a poor historian. She denies any recent emesis. No fever or chills. PAST MEDICAL HISTORY: COPD, fibromyalgia, gastroesophageal reflux, gallstones, anemia, anxiety, osteoarthritis, chronic pain. PAST SURGICAL HISTORY: No recent major surgeries. FAMILY HISTORY: Noncontributory. SOCIAL HISTORY: She is and lives with her and kids. Smokes. ALLERGIES: No known drug allergies. MEDICATIONS: List was reviewed. REVIEW OF SYSTEMS: As indicated above, otherwise a 10-point system was reviewed and negative. PHYSICAL EXAMINATION: VITAL SIGNS: T-max was 100.0, 3 liters of oxygen supplementation. HEENT: Eyes, the sclerae were nonicteric. NECK: Jugular venous distention was not elevated. No lymphadenopathy. CHEST: Full expansion. LUNGS: Bilateral rales. No wheezes. HEART: Regular rate and rhythm with S1, S2. No S3. ABDOMEN: Soft, nontender. EXTREMITIES: No clubbing, cyanosis. No edema. LABORATORY DATA: White count was 8.5, hemoglobin and hematocrit of 6.8 and 21. She was transfused, repeat hemoglobin was 8.6. Electrolytes were noted. BUN and creatinine 8 and 0.5. Stool was negative for occult blood. CT as indicated above. IMPRESSION: 1. Acute hypoxemic respiratory failure. 2. Aspiration pneumonia. 3. Abnormal CT chest compatible with aspiration pneumonia. 4. Chronic obstructive pulmonary disease. 5. Acute exacerbation of chronic obstructive pulmonary disease. 6. Acute on chronic blood loss anemia. PLAN: 1. Continue IV Zosyn. 2. Oxygen supplementation. 3. Consult GI already performed. 4. Nebulized treatments. 5. PPI. 6. Deep venous thrombosis and gastrointestinal prophylaxis. I do appreciate the privilege in sharing in the patient's care. EMI/JAMAL DR: Loi TID: [id number]
[2021-01-24] MEDS: AZITHROMYCIN 250 MG in IV NORMAL SALINE 250ML 250 ML IV SCH (06:30)
[2021-01-24 06:42] LABS: HEMATOCRIT 23.5 % (36.0-47.0); HEMOGLOBIN 7.4 g/dL (12.0-15.5)
[2021-01-24 07:00] VITALS: BP 133/70
[2021-01-24] MEDS: PANTOPRAZOLE IV PUSH 40 MG VIAL. IVP SCH (08:28)
[2021-01-24] MEDS: LACTOBACILLUS RHAMNOSUS GG 1 CAPSULE. PO SCH ×2 (08:29→22:22)
[2021-01-24] MEDS: POTASSIUM CHLORIDE 20 MEQ TABLET.ER. PO SCH ×3 (08:29→22:29)
--- NOTE | 2021-01-24 09:52 | PDOC ---
PULMONARY PROGRESS NOTES DATE: 01/24/21 TIME: 09:51 Subjective feeling better today still having difficulty with memory remains on 3 liters NC no increased SOA or Cough Vitals Vital Signs Date Time Temp Pulse Resp B/P (MAP) Pulse Ox O2 Delivery O2 Flow Rate FiO2 01/24/21 07:00 98.4 83 18 133/70 (91) 95 Nasal Cannula 3.0 98.4 ROS: No Nausea, No Chest Pain, No Abdominal Pain, No Increase Cough General: Alert Lungs: Crackles Cardiovascular: S1, S2 Abdomen: Soft Neuro Exam: Alert Labs Laboratory Tests Test 01/22/21 18:10 01/23/21 04:40 01/23/21 11:55 01/23/21 14:29 White Blood Count 8.5 x10^3/uL (4.0-11.0) 7.1 x10^3/uL (4.0-11.0) Red Blood Count 2.47 x10^6/uL (3.50-5.40) 3.17 x10^6/uL (3.50-5.70) Hemoglobin 6.8 g/dL (12.0-15.5) 8.6 g/dL (12.0-15.5) 8.6 g/dL (12.0-15.5) Hematocrit 21.5 % (36.0-47.0) 27.5 % (36.0-47.0) 26.8 % (36.0-47.0) Mean Corpuscular Volume 87 fL (79-100) 86 fL (79-100) Mean Corpuscular Hemoglobin 27 pg (25-35) 27 pg (25-35) Mean Corpuscular Hemoglobin Concent 32 g/dL (31-37) 31 g/dL (31-37) 32 g/dL (31-37) Red Cell Distribution Width 18.4 % (11.5-14.5) 18.9 % (11.5-14.5) Platelet Count 524 x10^3/uL (140-400) 547 x10^3/uL (140-400) Neutrophils (%) (Auto) 87 % (31-73) 80 % (31-73) Lymphocytes (%) (Auto) 5 % (24-48) 9 % (24-48) Monocytes (%) (Auto) 8 % (0-9) 11 % (0-9) Eosinophils (%) (Auto) 0 % (0-3) 0 % (0-3) Basophils (%) (Auto) 0 % (0-3) 0 % (0-3) Neutrophils # (Auto) 7.4 x10^3/uL (1.8-7.7) 5.6 x10^3/uL (1.8-7.7) Lymphocytes # (Auto) 0.4 x10^3/uL (1.0-4.8) 0.7 x10^3/uL (1.0-4.8) Monocytes # (Auto) 0.6 x10^3/uL (0.0-1.1) 0.8 x10^3/uL (0.0-1.1) Eosinophils # (Auto) 0.0 x10^3/uL (0.0-0.7) 0.0 x10^3/uL (0.0-0.7) Basophils # (Auto) 0.0 x10^3/uL (0.0-0.2) 0.0 x10^3/uL (0.0-0.2) Segmented Neutrophils % 82 % (35-66) Lymphocytes % 8 % (24-48) Monocytes % 9 % (0-10) Basophils % 1 % (0-3) Platelet Estimate Increased (ADEQUATE) Large Platelets Occ Polychromasia Slight Anisocytosis Slight Microcytosis Slight Macrocytosis Slight Sodium Level 139 mmol/L (136-145) 143 mmol/L (136-145) Potassium Level 3.6 mmol/L (3.5-5.1) 3.2 mmol/L (3.5-5.1) Chloride Level 103 mmol/L (98-107) 106 mmol/L (98-107) Carbon Dioxide Level 28 mmol/L (21-32) 26 mmol/L (21-32) Anion Gap 8 (6-14) 11 (6-14) Blood Urea Nitrogen 6 mg/dL (7-20) 7 mg/dL (7-20) Creatinine 0.5 mg/dL (0.6-1.0) 0.6 mg/dL (0.6-1.0) Estimated GFR (Cockcroft-Gault) 125.9 102.0 Glucose Level 102 mg/dL (70-99) 96 mg/dL (70-99) Calcium Level 8.2 mg/dL (8.5-10.1) 8.7 mg/dL (8.5-10.1) Absolute Reticulocyte Count 0.085 x10^6/uL (0.020-0.120) Percent Reticulocyte Count 2.7 % (0.5-2.3) Immature Reticulocyte Fraction 0.47 (0.20-0.60) Iron Level 16 ug/dL (50-170) Total Iron Binding Capacity 324 ug/dL (250-450) Iron Saturation 5 % (15-34) Vitamin B12 Level 470 pg/mL (247-911) Ammonia < 10 mcmol/L (11-34) Stool Occult Blood Negative (NEG) Test 01/23/21 17:42 01/24/21 05:35 Hemoglobin 7.9 g/dL (12.0-15.5) 7.4 g/dL (12.0-15.5) Hematocrit 24.5 % (36.0-47.0) 23.5 % (36.0-47.0) Mean Corpuscular Hemoglobin Concent 32 g/dL (31-37) 32 g/dL (31-37) Laboratory Tests Test 01/23/21 11:55 01/23/21 14:29 01/23/21 17:42 01/24/21 05:35 Hemoglobin 8.6 g/dL (12.0-15.5) 7.9 g/dL (12.0-15.5) 7.4 g/dL (12.0-15.5) Hematocrit 26.8 % (36.0-47.0) 24.5 % (36.0-47.0) 23.5 % (36.0-47.0) Mean Corpuscular Hemoglobin Concent 32 g/dL (31-37) 32 g/dL (31-37) 32 g/dL (31-37) Ammonia < 10 mcmol/L (11-34) Stool Occult Blood Negative (NEG) Medications Active Scripts Medications Dose Route/Sig Max Daily Dose Days Date Category Morphine Sulfate 15 Mg Tablet 1 Tab PO BID 01/22/21 Reported Folic Acid 0.8 Mg Capsule 1 Cap PO DAILY 30 01/22/21 Reported Impression . IMPRESSION: 1. Acute hypoxemic respiratory failure-improving 2. Aspiration pneumonia. 3. Abnormal CT chest compatible with aspiration pneumonia. 4. Chronic obstructive pulmonary disease. 5. Acute exacerbation of chronic obstructive pulmonary disease. 6. Acute on chronic blood loss anemia. Plan . PLAN: Continue supplemental oxygen to keep sats above 92%, currently on 3 liters Continue ABX: zosyn and azithro Follow GI recs-- PPI and planned for EGD/Colonoscopy outpt-- Monitor HGB Follow neurology recs NEBS DVT/GI PPX D/W DARON GUTIERREZ MD Jan 24, 2021 09:52
--- NOTE | 2021-01-24 10:11 | PDOC ---
Date of Service: DATE: 01/24/21 TIME: 10:03 Subjective: Subjective: Feels better she thinks. Can't remember what she had for breakfast - then remembers scrambled eggs. No abd pain, no bleeding. Thinks breathing better. Objective: Objective: 1 stool charted. No GI concerns per nurse. Vital Signs: Vital Signs Date Time Temp Pulse Resp B/P (MAP) Pulse Ox O2 Delivery O2 Flow Rate FiO2 01/24/21 07:00 98.4 83 18 133/70 (91) 95 Nasal Cannula 3.0 98.4 Labs: Laboratory Tests Test 01/23/21 11:55 01/23/21 14:29 01/23/21 17:42 01/24/21 05:35 Hemoglobin 8.6 g/dL 7.9 g/dL 7.4 g/dL Hematocrit 26.8 % 24.5 % 23.5 % Mean Corpuscular Hemoglobin Concent 32 g/dL 32 g/dL 32 g/dL Ammonia < 10 mcmol/L Stool Occult Blood Negative Imaging: Bedside Swallow Evaluation completed 01/23/21. Please refer to full report in intervention section for additional information. Impressions: Swallow appears functional and safe w/ minimal oropharyngeal concerns. No s/s aspiration including impulsive large volume drinking of thin liquid and bites of puree when pt self feeding. Pt is impulsive and impulsivity may increase risk of aspiration. Pt states she prefers soft foods. Recommendations: GI soft diet w/ thin liquids. ST f/u for dysphagia. d/w RN, Dr. Martins, Dany Ledesma PE: GEN: NAD - was asleep LUNGS: diminished, NC 3L HEART: RRR ABD: soft, non-tender NEURO/PSYCH: A & O 3 - more alert today - still bit slow to respond, has to think for awhile A/P: Resp failure/aspiration pneumonia, metabolic encephalopathy DINH - no previous 'scopes, Hemoccult negative Suspect OIC - stooled after Relistor Chronic pain on morphine -- Plan for outpt EGD and colonoscopy when resp issues improved. Continue PPI - change to PO QD. Add iron - PO for now, consider infusion (will defer to primary). Transfuse pRBCs PRN. Can repeat Relistor PRN - will start Amitiza for now. Justicifation of Admission Dx: Justifications for Admission: Justification of Admission Dx: Yes DANY FUENTES Jan 24, 2021 10:11
[2021-01-24] MEDS ORDERED: POLYETHYLENE GLYCOL 3350 17 GM PACKET. PO PRN (10:15)
[2021-01-24] MEDS ORDERED: BISACODYL 5 MG TABLET.DR. PO PRN (10:15)
[2021-01-24 11:00] VITALS: BP 127/66
[2021-01-24 11:13] LABS: CALCIUM 8.4 mg/dL (8.5-10.1); CREATININE 0.6 mg/dL (0.6-1.0); POTASSIUM 3.6 mmol/L (3.5-5.1)
[2021-01-24] MEDS: LUBIPROSTONE 24 MCG CAPSULE PO SCH ×2 (12:02→17:12)
[2021-01-24] MEDS: FERROUS SULFATE 325 MG TABLET. PO SCH ×2 (12:02→17:12)
[2021-01-24 12:44] LABS: HEMATOCRIT 24.1 % (36.0-47.0); HEMOGLOBIN 7.7 g/dL (12.0-15.5)
--- NOTE | 2021-01-24 13:20 | NUR ---
ANDRIY following. Discussed with RN, ANDRIY met with pt to discuss therapy recommendation of SNF. Pt does not want to go to SNF. ANDRIY offered home health - pt declined. ANDRIY advised pt to contact her PCP if she changes her mind when she gets home. RN notified. ANDRIY will continue to follow. Addendum: 01/25/21 at 0814 by MARLIN ASHRAF Therapy called late yesterday stating pt is going to speak with her family about whether she should go to a SNF or not.
--- NOTE | 2021-01-24 13:49 | PDOC ---
PROGRESS NOTES Date of Service DATE: 01/24/21 TIME: 13:46 Assessment Doubt posterior reversible encephalopathy. Metabolic encephalopathy Medical issues: pneumonia, leukocytosis, severe anemia, hypoxia in the setting of COPD and pneumonia. Peripheral neuropathy which may be from her previous alcohol use as other work- up was negative. Fibromyalgia and chronic back pain, no evidence of acute radiculopathy. Plan Treat medical diseases Await laboratory studies Hold off on MRI of the brain or lumbar puncture Rehabilitation modalities Subjective Feels better Objective Vital Signs Date Time Temp Pulse Resp B/P (MAP) Pulse Ox O2 Delivery O2 Flow Rate FiO2 01/24/21 11:00 98.4 76 18 127/66 (86) 96 Nasal Cannula 3.0 98.4 Intake and Output 01/24/21 07:00 Intake Total 50 ml Balance 50 ml Intake Oral 50 ml # Voids 4 # Bowel Movements 1 PHYSICAL EXAM Alert. Oriented to time, place and person. PERRL. EOMI. CN: no focal findings. Muscle tone: normal. Muscle strength: 4/5 DTR: 0+ Plantar reflex: Flexor Gait: not examined in bed. Sensory exam: Stocking loss. No cerebellar signs elicited. Review of Relevant I have reviewed the following items miranda (where applicable) has been applied. Labs Laboratory Tests Test 01/22/21 18:10 01/23/21 04:40 01/23/21 11:55 01/23/21 14:29 White Blood Count 8.5 x10^3/uL (4.0-11.0) 7.1 x10^3/uL (4.0-11.0) Red Blood Count 2.47 x10^6/uL (3.50-5.40) 3.17 x10^6/uL (3.50-5.70) Hemoglobin 6.8 g/dL (12.0-15.5) 8.6 g/dL (12.0-15.5) 8.6 g/dL (12.0-15.5) Hematocrit 21.5 % (36.0-47.0) 27.5 % (36.0-47.0) 26.8 % (36.0-47.0) Mean Corpuscular Volume 87 fL (79-100) 86 fL (79-100) Mean Corpuscular Hemoglobin 27 pg (25-35) 27 pg (25-35) Mean Corpuscular Hemoglobin Concent 32 g/dL (31-37) 31 g/dL (31-37) 32 g/dL (31-37) Red Cell Distribution Width 18.4 % (11.5-14.5) 18.9 % (11.5-14.5) Platelet Count 524 x10^3/uL (140-400) 547 x10^3/uL (140-400) Neutrophils (%) (Auto) 87 % (31-73) 80 % (31-73) Lymphocytes (%) (Auto) 5 % (24-48) 9 % (24-48) Monocytes (%) (Auto) 8 % (0-9) 11 % (0-9) Eosinophils (%) (Auto) 0 % (0-3) 0 % (0-3) Basophils (%) (Auto) 0 % (0-3) 0 % (0-3) Neutrophils # (Auto) 7.4 x10^3/uL (1.8-7.7) 5.6 x10^3/uL (1.8-7.7) Lymphocytes # (Auto) 0.4 x10^3/uL (1.0-4.8) 0.7 x10^3/uL (1.0-4.8) Monocytes # (Auto) 0.6 x10^3/uL (0.0-1.1) 0.8 x10^3/uL (0.0-1.1) Eosinophils # (Auto) 0.0 x10^3/uL (0.0-0.7) 0.0 x10^3/uL (0.0-0.7) Basophils # (Auto) 0.0 x10^3/uL (0.0-0.2) 0.0 x10^3/uL (0.0-0.2) Segmented Neutrophils % 82 % (35-66) Lymphocytes % 8 % (24-48) Monocytes % 9 % (0-10) Basophils % 1 % (0-3) Platelet Estimate Increased (ADEQUATE) Large Platelets Occ Polychromasia Slight Anisocytosis Slight Microcytosis Slight Macrocytosis Slight Sodium Level 139 mmol/L (136-145) 143 mmol/L (136-145) Potassium Level 3.6 mmol/L (3.5-5.1) 3.2 mmol/L (3.5-5.1) Chloride Level 103 mmol/L (98-107) 106 mmol/L (98-107) Carbon Dioxide Level 28 mmol/L (21-32) 26 mmol/L (21-32) Anion Gap 8 (6-14) 11 (6-14) Blood Urea Nitrogen 6 mg/dL (7-20) 7 mg/dL (7-20) Creatinine 0.5 mg/dL (0.6-1.0) 0.6 mg/dL (0.6-1.0) Estimated GFR (Cockcroft-Gault) 125.9 102.0 Glucose Level 102 mg/dL (70-99) 96 mg/dL (70-99) Calcium Level 8.2 mg/dL (8.5-10.1) 8.7 mg/dL (8.5-10.1) Absolute Reticulocyte Count 0.085 x10^6/uL (0.020-0.120) Percent Reticulocyte Count 2.7 % (0.5-2.3) Immature Reticulocyte Fraction 0.47 (0.20-0.60) Iron Level 16 ug/dL (50-170) Total Iron Binding Capacity 324 ug/dL (250-450) Iron Saturation 5 % (15-34) Vitamin B12 Level 470 pg/mL (247-911) Ammonia < 10 mcmol/L (11-34) Stool Occult Blood Negative (NEG) Test 01/23/21 17:42 01/24/21 05:35 01/24/21 12:15 Hemoglobin 7.9 g/dL (12.0-15.5) 7.4 g/dL (12.0-15.5) 7.7 g/dL (12.0-15.5) Hematocrit 24.5 % (36.0-47.0) 23.5 % (36.0-47.0) 24.1 % (36.0-47.0) Mean Corpuscular Hemoglobin Concent 32 g/dL (31-37) 32 g/dL (31-37) 32 g/dL (31-37) Sodium Level 142 mmol/L (136-145) Potassium Level 3.6 mmol/L (3.5-5.1) Chloride Level 106 mmol/L (98-107) Carbon Dioxide Level 27 mmol/L (21-32) Anion Gap 9 (6-14) Blood Urea Nitrogen 7 mg/dL (7-20) Creatinine 0.6 mg/dL (0.6-1.0) Estimated GFR (Cockcroft-Gault) 102.0 Glucose Level 82 mg/dL (70-99) Calcium Level 8.4 mg/dL (8.5-10.1) Ferritin 128 ng/mL (8-252) Laboratory Tests Test 01/23/21 14:29 01/23/21 17:42 01/24/21 05:35 01/24/21 12:15 Stool Occult Blood Negative (NEG) Hemoglobin 7.9 g/dL (12.0-15.5) 7.4 g/dL (12.0-15.5) 7.7 g/dL (12.0-15.5) Hematocrit 24.5 % (36.0-47.0) 23.5 % (36.0-47.0) 24.1 % (36.0-47.0) Mean Corpuscular Hemoglobin Concent 32 g/dL (31-37) 32 g/dL (31-37) 32 g/dL (31-37) Sodium Level 142 mmol/L (136-145) Potassium Level 3.6 mmol/L (3.5-5.1) Chloride Level 106 mmol/L (98-107) Carbon Dioxide Level 27 mmol/L (21-32) Anion Gap 9 (6-14) Blood Urea Nitrogen 7 mg/dL (7-20) Creatinine 0.6 mg/dL (0.6-1.0) Estimated GFR (Cockcroft-Gault) 102.0 Glucose Level 82 mg/dL (70-99) Calcium Level 8.4 mg/dL (8.5-10.1) Ferritin 128 ng/mL (8-252) Medications Current Medications Ringer's Solution 1,000 ml @ 100 mls/hr Q10H IV Last administered on 01/24/21at 04:45; Start 01/22/21 at 18:00 Azithromycin 250 mg/Sodium Chloride 250 ml @ 250 mls/hr Q24H IV Last administered on 01/24/21at 06:30; Start 01/23/21 at 06:30 Piperacillin Sod/ Tazobactam Sod 3.375 gm/Sodium Chloride 50 ml @ 100 mls/hr Q6HRS IV Last administered on 01/24/21at 12:02; Start 01/22/21 at 18:00 Fentanyl Citrate (Fentanyl 2ml Vial) 50 mcg PRN Q4HRS PRN IVP PAIN; Start 01/22/21 at 17:30 Ondansetron HCl (Zofran) 4 mg PRN Q4HRS PRN IVP NAUSEA/VOMITING; Start 01/22/21 at 17:30 Olanzapine (ZyPREXA ZYDIS) 2.5 mg PRN Q4HRS PRN PO ANXIETY / AGITATION Last administered on 01/23/21at 21:26; Start 01/22/21 at 17:30 Pantoprazole Sodium (PROTONIX VIAL for IV PUSH) 40 mg BIDAC IVP Last administered on 01/24/21at 08:28; Start 01/22/21 at 19:00; Stop 01/24/21 at 10:13; Status DC Potassium Chloride (Klor-Con) 40 meq 1X ONCE PO Last administered on 01/23/21at 13:31; Start 01/23/21 at 11:30; Stop 01/23/21 at 11:31; Status DC Potassium Chloride (Klor-Con) 20 meq TID PO Last administered on 01/24/21at 08:29; Start 01/23/21 at 14:00 Methylnaltrexone [place] (Relistor) 12 mg 1X ONCE SQ Last administered on 01/23/21at 13:31; Start 01/23/21 at 11:30; Stop 01/23/21 at 11:31; Status DC Lactobacillus Rhamnosus (Culturelle) 1 cap BID PO Last administered on 01/24/21at 08:29; Start 01/23/21 at 21:00 Magnesium Citrate (Citroma) 296 ml 1X ONCE PO ; Start 01/23/21 at 22:30; Stop 01/23/21 at 22:31; Status Cancel Pantoprazole Sodium (Protonix) 40 mg DAILYAC PO ; Start 01/25/21 at 07:30 Lubiprostone (Amitiza) 24 mcg BIDWMEALS PO Last administered on 01/24/21at 12:02; Start 01/24/21 at 11:00 Ferrous Sulfate (Feosol) 325 mg BIDWMEALS PO Last administered on 01/24/21at 12:02; Start 01/24/21 at 11:00 Polyethylene Glycol (miraLAX PACKET) 17 gm PRN DAILY PRN PO CONSTIPATION; Start 01/24/21 at 10:15 Bisacodyl (Dulcolax Tab) 5 mg PRN DAILY PRN PO CONSTIPATION; Start 01/24/21 at 10:15 Active Scripts Active Reported Morphine Sulfate 15 Mg Tablet 1 Tab PO BID Folic Acid 0.8 Mg Capsule 1 Cap PO DAILY 30 Days Vitals/I & O Vital Sign - Last 24 Hours 01/23/21 01/23/21 01/23/21 01/23/21 15:00 19:00 20:05 23:31 Temp 98.6 98.7 98.6 98.6 98.7 98.6 Pulse 93 88 80 Resp 18 20 18 B/P (MAP) 130/76 (94) 143/68 (93) 134/71 (92) Pulse Ox 95 100 98 O2 Delivery Nasal Cannula Nasal Cannula Nasal Cannula Nasal Cannula O2 Flow Rate 3.0 3.0 2.0 3.0 01/24/21 01/24/21 01/24/21 01/24/21 03:00 07:00 08:15 11:00 Temp 98.8 98.4 98.4 98.8 98.4 98.4 Pulse 82 83 76 Resp 16 18 18 B/P (MAP) 127/62 (83) 133/70 (91) 127/66 (86) Pulse Ox 97 95 96 O2 Delivery Nasal Cannula Nasal Cannula Nasal Cannula Nasal Cannula O2 Flow Rate 3.0 3.0 3.0 3.0 Intake and Output 01/23/21 01/23/21 01/24/21 15:00 23:00 07:00 Intake Total 50 ml Balance 50 ml Justicifation of Admission Dx: Justifications for Admission: Justification of Admission Dx: Yes BRANDON MOSQUEDA MD Jan 24, 2021 13:49
[2021-01-24 15:00] VITALS: BP 140/72
[2021-01-24 19:00] VITALS: BP 123/72
[2021-01-24 23:16] VITALS: BP 126/66
--- NOTE | 2021-01-25 | PN ---
DATE: 01/24/2021 SUBJECTIVE: The patient is resting, slightly propped up in bed, in no apparent respiratory distress. She continued to complain of back pain and weakness of both lower extremities. PHYSICAL EXAMINATION: GENERAL: When I examined her; however, she looked pale, cachectic, but not jaundiced, cyanosed or thyromegaly. No jugular distention. No edema. VITAL SIGNS: Her heart rate was 83, blood pressure was 133/70, temperature was 98.4, respiratory rate was 18 and oxygen saturation was 95% on 3 liters of oxygen. HEAD, EYES, EARS, NOSE AND THROAT: Normocephalic, atraumatic. NECK: Supple. HEART: Showed normal first and second heart sounds, no gallop, rub or murmur. CHEST: Shows central trachea, equal bilateral expansion, air entry, vesicular breath sounds with crepitation mostly on the right side posteriorly. I could not appreciate any rhonchi. ABDOMEN: Scaphoid, soft, nontender. NEUROLOGIC: She is awake, alert, responding appropriately. All cranial nerves intact. Moves upper extremities to much good extent lower extremities. Her intake was 2300, no output was recorded. LABORATORY DATA: Her hemoglobin this morning was 7.4, hematocrit 23.5. Her serum iron was low at 16. TIBC was elevated at 324 and her iron saturation was only 5. Her vitamin B12 was 473 picogram and ammonia was only less than 10. Her stool for occult blood was negative. ASSESSMENT: 1. Mechanical fall with no evidence of any obvious injury. 2. Chronic back pain. 3. Community-acquired pneumonia versus aspiration pneumonia. 4. She has also anemia that is normochromic normocytic. Other medical problems include chronic obstructive pulmonary disease, fibromyalgia, gastroesophageal reflux disease, cholelithiasis, anxiety and generalized osteoarthritis. PLAN: My plan is to continue with IV antibiotic. Continue with Protonix. She did have anemia for which we started her on potassium supplement. Continue with pain management and potassium supplementation. MANDI NORTON: Michelle TID: [id number]
[2021-01-25] MEDS: PIPERACILLIN/TAZOBACTAM 3.375 GM in IV NORMAL SALINE 50ML 50 ML IV SCH ×5 (00:02→23:28)
[2021-01-25 03:13] VITALS: BP 148/69
[2021-01-25 04:21] LABS: HEMATOCRIT 27.6 % (36.0-47.0); HEMOGLOBIN 8.6 g/dL (12.0-15.5)
[2021-01-25] MEDS: IV RINGERS,LACTATED 1000ML 1,000 ML IV SCH ×2 (04:41→17:56)
[2021-01-25] MEDS: AZITHROMYCIN 250 MG in IV NORMAL SALINE 250ML 250 ML IV SCH (04:44)
[2021-01-25 05:38] LABS: ALBUMIN 2.6 g/dL (3.4-5.0); DIRECT BILIRUBIN 0.1 mg/dL (0.0-0.2); TOTAL BILIRUBIN 0.4 mg/dL (0.2-1.0); TOTAL PROTEIN 6.6 g/dL (6.4-8.2)
[2021-01-25 07:00] VITALS: BP 113/49
[2021-01-25] MEDS: PANTOPRAZOLE 40 MG TABLET.DR. PO SCH (07:58)
[2021-01-25] MEDS: LUBIPROSTONE 24 MCG CAPSULE PO SCH (08:00)
--- NOTE | 2021-01-25 08:53 | PDOC ---
PULMONARY PROGRESS NOTES DATE: 01/25/21 TIME: 08:51 Subjective remains on 3 liters NC no increased SOA or Cough complains of back pain refusing to do PT/OT Vitals Vital Signs Date Time Temp Pulse Resp B/P (MAP) Pulse Ox O2 Delivery O2 Flow Rate FiO2 01/25/21 07:45 Nasal Cannula 3.0 01/25/21 07:00 98.7 79 20 113/49 (70) 95 98.7 ROS: No Nausea, No Chest Pain, No Abdominal Pain, No Increase Cough General: Alert Lungs: Crackles Cardiovascular: S1, S2 Abdomen: Soft Neuro Exam: Alert Labs Laboratory Tests Test 01/23/21 11:55 01/23/21 14:29 01/23/21 17:42 01/24/21 05:35 Hemoglobin 8.6 g/dL (12.0-15.5) 7.9 g/dL (12.0-15.5) 7.4 g/dL (12.0-15.5) Hematocrit 26.8 % (36.0-47.0) 24.5 % (36.0-47.0) 23.5 % (36.0-47.0) Mean Corpuscular Hemoglobin Concent 32 g/dL (31-37) 32 g/dL (31-37) 32 g/dL (31-37) Ammonia < 10 mcmol/L (11-34) Stool Occult Blood Negative (NEG) Sodium Level 142 mmol/L (136-145) Potassium Level 3.6 mmol/L (3.5-5.1) Chloride Level 106 mmol/L (98-107) Carbon Dioxide Level 27 mmol/L (21-32) Anion Gap 9 (6-14) Blood Urea Nitrogen 7 mg/dL (7-20) Creatinine 0.6 mg/dL (0.6-1.0) Estimated GFR (Cockcroft-Gault) 102.0 Glucose Level 82 mg/dL (70-99) Calcium Level 8.4 mg/dL (8.5-10.1) Ferritin 128 ng/mL (8-252) Test 01/24/21 12:15 01/25/21 04:00 Hemoglobin 7.7 g/dL (12.0-15.5) 8.6 g/dL (12.0-15.5) Hematocrit 24.1 % (36.0-47.0) 27.6 % (36.0-47.0) Mean Corpuscular Hemoglobin Concent 32 g/dL (31-37) 31 g/dL (31-37) Total Bilirubin 0.4 mg/dL (0.2-1.0) Direct Bilirubin 0.1 mg/dL (0.0-0.2) Aspartate Amino Transf (AST/SGOT) 9 U/L (15-37) Alanine Aminotransferase (ALT/SGPT) 8 U/L (14-59) Alkaline Phosphatase 95 U/L (46-116) Total Protein 6.6 g/dL (6.4-8.2) Albumin 2.6 g/dL (3.4-5.0) Laboratory Tests Test 01/24/21 12:15 01/25/21 04:00 Hemoglobin 7.7 g/dL (12.0-15.5) 8.6 g/dL (12.0-15.5) Hematocrit 24.1 % (36.0-47.0) 27.6 % (36.0-47.0) Mean Corpuscular Hemoglobin Concent 32 g/dL (31-37) 31 g/dL (31-37) Total Bilirubin 0.4 mg/dL (0.2-1.0) Direct Bilirubin 0.1 mg/dL (0.0-0.2) Aspartate Amino Transf (AST/SGOT) 9 U/L (15-37) Alanine Aminotransferase (ALT/SGPT) 8 U/L (14-59) Alkaline Phosphatase 95 U/L (46-116) Total Protein 6.6 g/dL (6.4-8.2) Albumin 2.6 g/dL (3.4-5.0) Medications Active Scripts Medications Dose Route/Sig Max Daily Dose Days Date Category Morphine Sulfate 15 Mg Tablet 1 Tab PO BID 01/22/21 Reported Folic Acid 0.8 Mg Capsule 1 Cap PO DAILY 30 01/22/21 Reported Impression . IMPRESSION: 1. Acute hypoxemic respiratory failure-improving 2. Aspiration pneumonia. 3. Abnormal CT chest compatible with aspiration pneumonia. 4. Chronic obstructive pulmonary disease. 5. Acute exacerbation of chronic obstructive pulmonary disease. 6. Acute on chronic blood loss anemia. Plan . PLAN: Continue supplemental oxygen to keep sats above 92%, currently on 3 liters Continue ABX: zosyn and azithro Follow GI recs-- PPI and planned for EGD/Colonoscopy outpt-- Monitor HGB appears stable Follow neurology recs NEBS Encourage Po intake DVT/GI PPX D/W collection systems worker for DC planning DARON PRESTON MD Jan 25, 2021 08:53
--- NOTE | 2021-01-25 09:32 | PDOC ---
PROGRESS NOTES Date of Service DATE: 01/25/21 TIME: 09:30 Assessment Doubt posterior reversible encephalopathy. Metabolic encephalopathy Medical issues: pneumonia, leukocytosis, severe anemia with iron deficiency, hypoxia in the setting of COPD and pneumonia. Peripheral neuropathy which may be from her previous alcohol use as other work- up was negative. Fibromyalgia and chronic back pain, no evidence of acute radiculopathy. Plan Treat medical diseases Hold off on MRI of the brain or lumbar puncture Rehabilitation modalities I offered follow-up with me if she wishes regarding her neuropathy and abnormal head CT Outpatient GI work-up Subjective Feeling better, no complaint Objective Vital Signs Date Time Temp Pulse Resp B/P (MAP) Pulse Ox O2 Delivery O2 Flow Rate FiO2 01/25/21 07:45 Nasal Cannula 3.0 01/25/21 07:00 98.7 79 20 113/49 (70) 95 98.7 Intake and Output 01/25/21 07:00 Intake Total 1570 ml Output Total 600 ml Balance 970 ml Intake Oral 320 ml IV Total 1250 ml Output Urine Total 600 ml # Voids 5 # Bowel Movements 2 PHYSICAL EXAM Alert. Oriented to time, place and person. PERRL. EOMI. CN: no focal findings. Muscle tone: normal. Muscle strength: 4/5 DTR: 0+ Plantar reflex: Flexor Gait: not examined in bed. Sensory exam: Stocking loss. No cerebellar signs elicited. Review of Relevant I have reviewed the following items miranda (where applicable) has been applied. Labs Laboratory Tests Test 01/23/21 11:55 01/23/21 14:29 01/23/21 17:42 01/24/21 05:35 Hemoglobin 8.6 g/dL (12.0-15.5) 7.9 g/dL (12.0-15.5) 7.4 g/dL (12.0-15.5) Hematocrit 26.8 % (36.0-47.0) 24.5 % (36.0-47.0) 23.5 % (36.0-47.0) Mean Corpuscular Hemoglobin Concent 32 g/dL (31-37) 32 g/dL (31-37) 32 g/dL (31-37) Ammonia < 10 mcmol/L (11-34) Stool Occult Blood Negative (NEG) Sodium Level 142 mmol/L (136-145) Potassium Level 3.6 mmol/L (3.5-5.1) Chloride Level 106 mmol/L (98-107) Carbon Dioxide Level 27 mmol/L (21-32) Anion Gap 9 (6-14) Blood Urea Nitrogen 7 mg/dL (7-20) Creatinine 0.6 mg/dL (0.6-1.0) Estimated GFR (Cockcroft-Gault) 102.0 Glucose Level 82 mg/dL (70-99) Calcium Level 8.4 mg/dL (8.5-10.1) Ferritin 128 ng/mL (8-252) Test 01/24/21 12:15 01/25/21 04:00 Hemoglobin 7.7 g/dL (12.0-15.5) 8.6 g/dL (12.0-15.5) Hematocrit 24.1 % (36.0-47.0) 27.6 % (36.0-47.0) Mean Corpuscular Hemoglobin Concent 32 g/dL (31-37) 31 g/dL (31-37) Total Bilirubin 0.4 mg/dL (0.2-1.0) Direct Bilirubin 0.1 mg/dL (0.0-0.2) Aspartate Amino Transf (AST/SGOT) 9 U/L (15-37) Alanine Aminotransferase (ALT/SGPT) 8 U/L (14-59) Alkaline Phosphatase 95 U/L (46-116) Total Protein 6.6 g/dL (6.4-8.2) Albumin 2.6 g/dL (3.4-5.0) Laboratory Tests Test 01/24/21 12:15 01/25/21 04:00 Hemoglobin 7.7 g/dL (12.0-15.5) 8.6 g/dL (12.0-15.5) Hematocrit 24.1 % (36.0-47.0) 27.6 % (36.0-47.0) Mean Corpuscular Hemoglobin Concent 32 g/dL (31-37) 31 g/dL (31-37) Total Bilirubin 0.4 mg/dL (0.2-1.0) Direct Bilirubin 0.1 mg/dL (0.0-0.2) Aspartate Amino Transf (AST/SGOT) 9 U/L (15-37) Alanine Aminotransferase (ALT/SGPT) 8 U/L (14-59) Alkaline Phosphatase 95 U/L (46-116) Total Protein 6.6 g/dL (6.4-8.2) Albumin 2.6 g/dL (3.4-5.0) Medications Current Medications Ringer's Solution 1,000 ml @ 100 mls/hr Q10H IV Last administered on 01/25/21at 04:41; Start 01/22/21 at 18:00 Azithromycin 250 mg/Sodium Chloride 250 ml @ 250 mls/hr Q24H IV Last administered on 01/25/21at 04:44; Start 01/23/21 at 06:30 Piperacillin Sod/ Tazobactam Sod 3.375 gm/Sodium Chloride 50 ml @ 100 mls/hr Q6HRS IV Last administered on 01/25/21 04:43; Start 01/22/21 at 18:00 Fentanyl Citrate (Fentanyl 2ml Vial) 50 mcg PRN Q4HRS PRN IVP PAIN Last administered on 01/25/21at 03:19; Start 01/22/21 at 17:30 Ondansetron HCl (Zofran) 4 mg PRN Q4HRS PRN IVP NAUSEA/VOMITING; Start 01/22/21 at 17:30 Olanzapine (ZyPREXA ZYDIS) 2.5 mg PRN Q4HRS PRN PO ANXIETY / AGITATION Last administered on 01/25/21at 01:46; Start 01/22/21 at 17:30 Pantoprazole Sodium (PROTONIX VIAL for IV PUSH) 40 mg BIDAC IVP Last administered on 01/24/21at 08:28; Start 01/22/21 at 19:00; Stop 01/24/21 at 10:13; Status DC Potassium Chloride (Klor-Con) 40 meq 1X ONCE PO Last administered on 01/23/21at 13:31; Start 01/23/21 at 11:30; Stop 01/23/21 at 11:31; Status DC Potassium Chloride (Klor-Con) 20 meq TID PO Last administered on 01/24/21at 22:29; Start 01/23/21 at 14:00 Methylnaltrexone Willard (Relistor) 12 mg 1X ONCE SQ Last administered on 01/23/21at 13:31; Start 01/23/21 at 11:30; Stop 01/23/21 at 11:31; Status DC Lactobacillus Rhamnosus (Culturelle) 1 cap BID PO Last administered on 01/24/21at 22:22; Start 01/23/21 at 21:00 Magnesium Citrate (Citroma) 296 ml 1X ONCE PO ; Start 01/23/21 at 22:30; Stop 01/23/21 at 22:31; Status Cancel Pantoprazole Sodium (Protonix) 40 mg DAILYAC PO Last administered on 01/25/21at 07:58; Start 01/25/21 at 07:30 Lubiprostone (Amitiza) 24 mcg BIDWMEALS PO Last administered on 01/24/21at 17:12; Start 01/24/21 at 11:00 Ferrous Sulfate (Feosol) 325 mg BIDWMEALS PO Last administered on 01/24/21at 17:12; Start 01/24/21 at 11:00 Polyethylene Glycol (miraLAX PACKET) 17 gm PRN DAILY PRN PO CONSTIPATION; Start 01/24/21 at 10:15 Bisacodyl (Dulcolax Tab) 5 mg PRN DAILY PRN PO CONSTIPATION; Start 01/24/21 at 10:15 Active Scripts Active Reported Morphine Sulfate 15 Mg Tablet 1 Tab PO BID Folic Acid 0.8 Mg Capsule 1 Cap PO DAILY 30 Days Vitals/I & O Vital Sign - Last 24 Hours 01/24/21 01/24/21 01/24/21 01/24/21 11:00 15:00 19:00 20:00 Temp 98.4 98.2 98.7 98.4 98.2 98.7 Pulse 76 92 93 Resp 18 18 18 B/P (MAP) 127/66 (86) 140/72 (94) 123/72 (89) Pulse Ox 96 94 99 O2 Delivery Nasal Cannula Nasal Cannula Nasal Cannula O2 Flow Rate 3.0 3.0 3.0 01/24/21 01/25/21 01/25/21 01/25/21 23:16 03:13 03:19 03:49 Temp 99.2 99.2 99.2 99.2 Pulse 79 81 Resp 22 22 20 B/P (MAP) 126/66 (86) 148/69 (95) Pulse Ox 100 100 100 O2 Delivery Nasal Cannula Nasal Cannula Nasal Cannula Nasal Cannula O2 Flow Rate 3.0 3.0 3.0 01/25/21 01/25/21 07:00 07:45 Temp 98.7 98.7 Pulse 79 Resp 20 B/P (MAP) 113/49 (70) Pulse Ox 95 O2 Delivery Nasal Cannula Nasal Cannula O2 Flow Rate 3.0 3.0 Intake and Output 01/24/21 01/24/21 01/25/21 15:00 23:00 07:00 Intake Total 300 ml 1150 ml 120 ml Output Total 200 ml 400 ml Balance 300 ml 950 ml -280 ml Justicifation of Admission Dx: Justifications for Admission: Justification of Admission Dx: Yes BRANDON MOSQUEDA MD Jan 25, 2021 09:32
[2021-01-25] MEDS: FERROUS SULFATE 325 MG TABLET. PO SCH ×2 (09:35→17:00)
[2021-01-25] MEDS: POTASSIUM CHLORIDE 20 MEQ TABLET.ER. PO SCH ×3 (09:35→21:28)
[2021-01-25] MEDS: LACTOBACILLUS RHAMNOSUS GG 1 CAPSULE. PO SCH ×2 (09:35→21:28)
--- NOTE | 2021-01-25 10:00 | PDOC ---
Date of Service: DATE: 01/25/21 TIME: 09:50 Subjective: Subjective: Feeling better. Eating well "but I'm a picky eater." Had diarrhea and doesn't want to take Amitiza. Agreeable to outpt scopes. Objective: Vital Signs: Vital Signs Date Time Temp Pulse Resp B/P (MAP) Pulse Ox O2 Delivery O2 Flow Rate FiO2 01/25/21 07:45 Nasal Cannula 3.0 01/25/21 07:00 98.7 79 20 113/49 (70) 95 98.7 Labs: Laboratory Tests Test 01/24/21 12:15 01/25/21 04:00 Hemoglobin 7.7 g/dL 8.6 g/dL Hematocrit 24.1 % 27.6 % Mean Corpuscular Hemoglobin Concent 32 g/dL 31 g/dL Total Bilirubin 0.4 mg/dL Direct Bilirubin 0.1 mg/dL Aspartate Amino Transf (AST/SGOT) 9 U/L Alanine Aminotransferase (ALT/SGPT) 8 U/L Alkaline Phosphatase 95 U/L Total Protein 6.6 g/dL Albumin 2.6 g/dL PE: GEN: NAD - looks better LUNGS: diminished, NC HEART: RRR ABD: S/ND/NT NEURO/PSYCH: A & O 3, much more alert A/P: Resp failure/aspiration pneumonia, metabolic encephalopathy - improving DINH - no previous 'scopes, Hemoccult negative - Hgb stable/improved Suspect OIC - will stop Amitiza per her request; we did discuss other options including OTC Miralax, etc. - she'll likely need something long-term for constipation considering morphine use (and also now on iron) Chronic pain -- Outpt scopes - we'll call to arrange. Justicifation of Admission Dx: Justifications for Admission: Justification of Admission Dx: Yes DANY FUENTES Jan 25, 2021 10:00
[2021-01-25 11:00] VITALS: BP 133/65
[2021-01-25] MEDS: FOLIC ACID 1 MG TABLET. PO SCH (11:28)
[2021-01-25] MEDS: MORPHINE ER 15 MG TABLET.ER PO SCH ×2 (11:29→21:53)
[2021-01-25 11:34] LABS: HEMATOCRIT 26.8 % (36.0-47.0); HEMOGLOBIN 8.5 g/dL (12.0-15.5)
--- NOTE | 2021-01-25 14:07 | PN ---
DATE: 01/25/2021 SUBJECTIVE: The patient is resting slightly propped up in bed, in no apparent distress, awake, alert. On questioning her, she continued to complain of severe back pain. She is refusing to participate in physical and occupational therapy. She is adamantly refusing to go to any detention facility or rehab center. PHYSICAL EXAMINATION: GENERAL: When I examined her, she looked pale, cachectic, but no jaundice, cyanosis or thyromegaly. No jugular venous distention. No lower limb edema. VITAL SIGNS: Her heart rate was 79, blood pressure was 113/49, temperature was 98.7, respiratory rate 20, and oxygen saturation was 95% on 3 liters of oxygen. HEAD, EYES, EARS, NOSE AND THROAT: Normocephalic, atraumatic. NECK: Supple. HEART: Normal first and second heart sounds. No gallop, rub or murmur. CHEST: Clear to auscultation. No crepitation or rhonchi. ABDOMEN: Distended, soft, nontender. NEUROLOGIC: She is awake, alert, responding appropriately. All cranial nerves intact. She moves upper extremities to much good extent than lower extremities. She is mostly bedbound. Her intake and output were incompletely recorded. LABORATORY DATA: As of this morning, her hemoglobin was 8.6, hematocrit 27.6. Her chemistry showed a serum sodium 142, potassium 3.6, chloride 106, bicarbonate 27, anion gap of 8, BUN 7, creatinine 0.6. Estimated GFR was 102 mL per minute. Her glucose was 82, calcium was 8.4. Her total bilirubin, AST, ALT, alkaline phosphatase were normal. Total protein 6.6, albumin was 2.6. ASSESSMENT: 1. Mechanical fall with no evidence of any obvious injury. 2. Chronic back pain. 3. Community-acquired pneumonia versus aspiration pneumonia. 4. Acute hypoxic respiratory failure, currently on 4 liters of oxygen by nasal cannula. 5. Anemia. This seems to be normochromic, normocytic. 6. Chronic obstructive pulmonary disease. 7. Fibromyalgia. 8. Gastroesophageal reflux disease. 9. Cholelithiasis. 10. Generalized osteoarthritis. PLAN: To continue with IV antibiotic, continue with Protonix, continue with pain management and potassium supplementation. The patient is refusing to participate with physical and occupational therapy and refusing to consider a detention facility or rehab center. LISA DR: Michelle TID: [id number]
[2021-01-25 15:00] VITALS: BP 126/58
[2021-01-25 19:00] VITALS: BP 127/70
--- NOTE | 2021-01-25 19:24 | NUR ---
Patient family has called multiple times to me throughout the day not understanding that the patient is more confused today since she was more oriented yesterday. I tried to explain what encephalopathy is to the daughters, however they instead wanted to talk to the melt supervisor. Nursing melt supervisor has been bombarded by multiple calls from daughters about patient and is requesting a lateral transfer to [facility]. Dr. Martins notified of family wishes, in which he stated that he would see what he could do on 01/26 when he returns to the hospital. Patient did not per report sleep any throughout the night from 01/24 - 01/25 and was awake all day and confused to place and time. She finally fell asleep at 1700 and has been asleep since that time.
--- NOTE | 2021-01-25 22:43 | NUR ---
Pt not able to void. Attempted on bedpan and bedside commode to no avail. Bladder scanned: >835cc. Dr Martins informed. Orders received.
[2021-01-25 23:00] VITALS: BP 144/72
[2021-01-26 03:37] VITALS: BP 131/76
[2021-01-26 04:46] LABS: HEMATOCRIT 23.7 % (36.0-47.0); HEMOGLOBIN 7.3 g/dL (12.0-15.5); RED BLOOD COUNT 2.74 x10^6/uL (3.50-5.40); RED CELL DISTRIBUTION WIDTH 17.8 % (11.5-14.5); WHITE BLOOD COUNT 4.2 x10^3/uL (4.0-11.0)
[2021-01-26 05:23] LABS: ALBUMIN 2.2 g/dL (3.4-5.0); ALBUMIN/GLOBULIN RATIO 0.6 (1.0-1.7); CALCIUM 8.3 mg/dL (8.5-10.1); CREATININE 0.5 mg/dL (0.6-1.0); GFR 125.9; POTASSIUM 4.4 mmol/L (3.5-5.1); TOTAL BILIRUBIN 0.3 mg/dL (0.2-1.0); TOTAL PROTEIN 5.7 g/dL (6.4-8.2)
[2021-01-26] MEDS: PIPERACILLIN/TAZOBACTAM 3.375 GM in IV NORMAL SALINE 50ML 50 ML IV SCH ×2 (06:19→12:00)
[2021-01-26] MEDS: IV RINGERS,LACTATED 1000ML 1,000 ML IV SCH ×2 (06:19→12:00)
[2021-01-26] MEDS: PANTOPRAZOLE 40 MG TABLET.DR. PO SCH (06:24)
[2021-01-26 07:00] VITALS: BP 147/72
[2021-01-26] MEDS: AZITHROMYCIN 250 MG in IV NORMAL SALINE 250ML 250 ML IV SCH (07:12)
[2021-01-26] MEDS ORDERED: ACETAMINOPHEN 325 MG TABLET. PO PRN (07:15)
[2021-01-26] MEDS: FERROUS SULFATE 325 MG TABLET. PO SCH (08:34)
[2021-01-26] MEDS: POTASSIUM CHLORIDE 20 MEQ TABLET.ER. PO SCH (08:34)
[2021-01-26] MEDS: FOLIC ACID 1 MG TABLET. PO SCH (08:34)
[2021-01-26] MEDS: LACTOBACILLUS RHAMNOSUS GG 1 CAPSULE. PO SCH (08:34)
[2021-01-26] MEDS: MORPHINE ER 15 MG TABLET.ER PO SCH (08:36)
[2021-01-26] MEDS ORDERED: AMOX1TAB61 PO (09:35)
[2021-01-26] MEDS ORDERED: FERR-26 PO (09:37)
[2021-01-26] MEDS ORDERED: ASCO500C9 PO (09:37)
[2021-01-26] MEDS ORDERED: PANT40TA77 PO (09:37)
[2021-01-26] MEDS ORDERED: POLY17PO29 PO (09:52)
[2021-01-26] MEDS ORDERED: DOCU-109 PO (09:52)
[2021-01-26 11:06] VITALS: BP 138/68
--- NOTE | 2021-01-26 13:10 | NUR ---
DISCHARGE INSTRUCTIONS GIVEN TO PATIENT AND FAMILY MEMBERS AT THE BEDSIDE, QUESTIONS AND CONCERNS ANSWERED, PATIENT AND FAMILY VERBALIZED UNDERSTANDING OF DISCHARGE INFORMATION INCLUDING TAKING ALL MEDICATIONS INSTRUCTED AND FOLLOWING UP WITH HER PRIMARY PROVIDER IN 1-2 WEEKS, PATIENT ENCOURAGED TO COMPLETE THE ENTIRE DOSE OF ABT THERAPY EVEN IF SHE STARTS TO FEEL BETTER, PATIENT AGREED. ALL PERSONAL BELONGINGS GATHERED BY THE FAMILY AND PLACED IN BAGS FOR DISCHARGE.
--- NOTE | 2021-01-26 13:50 | NUR ---
PATIENT LEAVES THE UNIT PER W/C AND ACCOMPANIED BY THE SALARY AND WAGE ADMINISTRATOR ON THE UNIT, EMOTIONAL SUPPORT GIVEN, FOLLOW UP APPOINTMENTS ENCOURAGED.
--- NOTE | 2021-01-26 13:57 | DS ---
DATE OF DISCHARGE: 01/26/2021 HOSPITAL COURSE: The patient is a 60-year-old female patient who was admitted with altered mental status, aspiration pneumonia and acute hypoxic respiratory failure. I did start her on IV Zosyn as well as Zithromax. She was seen in consultation by the speech therapist as well as the special trackwork blacksmith and neurologist and industrial rehabilitation consultant. She actually did very well. She did very well in her video swallowing evaluation. She is on a regular diet, thin liquid. She was initially requiring oxygen up to 3 liters nasal cannula. She is now on room air, maintaining her oxygen saturation at 99%. She is afebrile, hemodynamically stable with normal white cell count. The patient was offered to go to a care home facility or home health and she refused. She refused even to work with Physical Therapy here. As she remained stable, a decision was made to discharge her home to follow up with her primary care physician, Dr. Chua. PHYSICAL EXAMINATION: GENERAL: When I saw her this morning, she was pale, cachectic, but no jaundice, cyanosis or thyromegaly. No jugular venous distention. No lower limb edema. VITAL SIGNS: Her heart rate was 85, blood pressure was 147/72, temperature was 98, respiratory rate was 19 and oxygen saturation was 99% on room air. HEAD, EYES, EARS, NOSE AND THROAT: Showed normocephalic, atraumatic. NECK: Supple. HEART: Showed normal first and second heart sounds. No gallop, rub or murmur. CHEST: Clear to auscultation. No crepitation or rhonchi. ABDOMEN: Scaphoid, soft, nontender. NEUROLOGIC: She is awake, alert, oriented to time, place and person. All cranial nerves intact. She moves upper extremities to much good extent than lower extremities. Her intake was 1500 and output was 600. LABORATORY DATA: Her lab work as of this morning showed a white cell count of 4200, hemoglobin 7.3, hematocrit 23, MCV 87 and platelet count of 483,000. Her chemistry showed a serum sodium 139, potassium 4.4, chloride 105, bicarbonate 26, anion gap of 8, BUN 4, creatinine 0.5. Estimated GFR 125 mL per minute. Her glucose was 79, calcium was 8.3. Total bilirubin, AST, ALT, alkaline phosphatase were normal. Her total protein was 5.7, albumin was 2.2. Her stool for occult blood was negative. DISCHARGE MEDICATIONS: She was discharged home to continue on: 1. Augmentin 875 mg 1 tablet twice a day with food for 7 more days. 2. Ascorbic acid 500 mg twice a day. 3. Ferrous sulfate 325 mg twice a day. 4. Colace 100 mg twice a day. 5. Protonix 40 mg once a day. 6. Polyethylene glycol 17 grams daily. 7. She is also on folic acid 800 mcg once a day. 8. Morphine sulfate 15 mg tablet twice a day. FINAL DISCHARGE DIAGNOSES: 1. Mechanical fall with no evidence of any obvious injury. 2. Chronic back pain. 3. Community acquired pneumonia versus aspiration pneumonia. 4. Acute hypoxic respiratory failure. She is now on room air, maintaining her oxygen saturation at 99%. 5. Anemia that is iron deficient, for which she is on ferrous sulfate and ascorbic acid. 6. Chronic obstructive pulmonary disease. 7. Fibromyalgia. 8. Gastroesophageal reflux disease. 9. Cholelithiasis. 10. Generalized osteoarthritis. TRAVON DR: Michelle TID: [id number]
--- NOTE | 2021-01-26 14:31 | PDOC ---
PULMONARY PROGRESS NOTES DATE: 01/26/21 TIME: 14:29 Subjective remains on 3 liters NC no increased SOA or Cough states she is DC home today Vitals Vital Signs Date Time Temp Pulse Resp B/P (MAP) Pulse Ox O2 Delivery O2 Flow Rate FiO2 01/26/21 11:06 98.0 80 20 138/68 (91) 96 Nasal Cannula 98.0 01/26/21 08:36 2.0 ROS: No Nausea, No Chest Pain, No Abdominal Pain, No Increase Cough General: Alert Lungs: Crackles Cardiovascular: S1, S2 Abdomen: Soft Neuro Exam: Alert Labs Laboratory Tests Test 01/25/21 04:00 01/25/21 11:28 01/26/21 04:15 Hemoglobin 8.6 g/dL (12.0-15.5) 8.5 g/dL (12.0-15.5) 7.3 g/dL (12.0-15.5) Hematocrit 27.6 % (36.0-47.0) 26.8 % (36.0-47.0) 23.7 % (36.0-47.0) Mean Corpuscular Hemoglobin Concent 31 g/dL (31-37) 32 g/dL (31-37) 31 g/dL (31-37) Total Bilirubin 0.4 mg/dL (0.2-1.0) 0.3 mg/dL (0.2-1.0) Direct Bilirubin 0.1 mg/dL (0.0-0.2) Aspartate Amino Transf (AST/SGOT) 9 U/L (15-37) 7 U/L (15-37) Alanine Aminotransferase (ALT/SGPT) 8 U/L (14-59) 8 U/L (14-59) Alkaline Phosphatase 95 U/L (46-116) 75 U/L (46-116) Total Protein 6.6 g/dL (6.4-8.2) 5.7 g/dL (6.4-8.2) Albumin 2.6 g/dL (3.4-5.0) 2.2 g/dL (3.4-5.0) White Blood Count 4.2 x10^3/uL (4.0-11.0) Red Blood Count 2.74 x10^6/uL (3.50-5.40) Mean Corpuscular Volume 87 fL (79-100) Mean Corpuscular Hemoglobin 27 pg (25-35) Red Cell Distribution Width 17.8 % (11.5-14.5) Platelet Count 483 x10^3/uL (140-400) Sodium Level 139 mmol/L (136-145) Potassium Level 4.4 mmol/L (3.5-5.1) Chloride Level 105 mmol/L (98-107) Carbon Dioxide Level 26 mmol/L (21-32) Anion Gap 8 (6-14) Blood Urea Nitrogen 4 mg/dL (7-20) Creatinine 0.5 mg/dL (0.6-1.0) Estimated GFR (Cockcroft-Gault) 125.9 BUN/Creatinine Ratio 8 (6-20) Glucose Level 79 mg/dL (70-99) Calcium Level 8.3 mg/dL (8.5-10.1) Albumin/Globulin Ratio 0.6 (1.0-1.7) Laboratory Tests Test 01/26/21 04:15 White Blood Count 4.2 x10^3/uL (4.0-11.0) Red Blood Count 2.74 x10^6/uL (3.50-5.40) Hemoglobin 7.3 g/dL (12.0-15.5) Hematocrit 23.7 % (36.0-47.0) Mean Corpuscular Volume 87 fL (79-100) Mean Corpuscular Hemoglobin 27 pg (25-35) Mean Corpuscular Hemoglobin Concent 31 g/dL (31-37) Red Cell Distribution Width 17.8 % (11.5-14.5) Platelet Count 483 x10^3/uL (140-400) Sodium Level 139 mmol/L (136-145) Potassium Level 4.4 mmol/L (3.5-5.1) Chloride Level 105 mmol/L (98-107) Carbon Dioxide Level 26 mmol/L (21-32) Anion Gap 8 (6-14) Blood Urea Nitrogen 4 mg/dL (7-20) Creatinine 0.5 mg/dL (0.6-1.0) Estimated GFR (Cockcroft-Gault) 125.9 BUN/Creatinine Ratio 8 (6-20) Glucose Level 79 mg/dL (70-99) Calcium Level 8.3 mg/dL (8.5-10.1) Total Bilirubin 0.3 mg/dL (0.2-1.0) Aspartate Amino Transf (AST/SGOT) 7 U/L (15-37) Alanine Aminotransferase (ALT/SGPT) 8 U/L (14-59) Alkaline Phosphatase 75 U/L (46-116) Total Protein 5.7 g/dL (6.4-8.2) Albumin 2.2 g/dL (3.4-5.0) Albumin/Globulin Ratio 0.6 (1.0-1.7) Medications Active Scripts Medications Dose Route/Sig Max Daily Dose Days Date Category Morphine Sulfate 15 Mg Tablet 1 Tab PO BID 01/22/21 Reported Folic Acid 0.8 Mg Capsule 1 Cap PO DAILY 30 01/22/21 Reported Impression . IMPRESSION: 1. Acute hypoxemic respiratory failure-improving 2. Aspiration pneumonia. 3. Abnormal CT chest compatible with aspiration pneumonia. 4. Chronic obstructive pulmonary disease. 5. Acute exacerbation of chronic obstructive pulmonary disease. 6. Acute on chronic blood loss anemia. Plan . PLAN: Continue supplemental oxygen to keep sats above 92%, currently on 3 liters Continue ABX: augmentin Follow GI recs-- PPI and planned for EGD/Colonoscopy outpt-- Monitor HGB appears stable Follow neurology recs NEBS Encourage Po intake DVT/GI PPX D/W RN sigifredo to DC from our standpoint , follow up in February in Office with DARON Ahmadi MD Jan 26, 2021 14:31
== END 2021-01-26 13:45 | disposition home or self-care (01) | DRG 177 ==
LOC: 6 SOUTH 17:04
PROVIDERS: ADMIT Internal Medicine; ATTEND Internal Medicine
PROC: 30233N1 Transfusion of Nonautologous Red Blood Cells into Peripheral Vein, Percutaneous Approach (ICD-10-PCS; principal; 2021-01-22)
DX: J69.0 Pneumonitis due to inhalation of food and vomit (principal); J96.01 Acute respiratory failure with hypoxia; G93.41 Metabolic encephalopathy; D62 Acute posthemorrhagic anemia; D50.9 Iron deficiency anemia, unspecified; F17.210 Nicotine dependence, cigarettes, uncomplicated; F41.9 Anxiety disorder, unspecified; G62.9 Polyneuropathy, unspecified; G89.29 Other chronic pain; J43.9 Emphysema, unspecified; K21.9 Gastro-esophageal reflux disease without esophagitis; K80.20 Calculus of gallbladder without cholecystitis without obstruction; K82.8 Other specified diseases of gallbladder; M15.9 Polyosteoarthritis, unspecified; M47.812 Spondylosis without myelopathy or radiculopathy, cervical region; M79.7 Fibromyalgia; R63.3 Feeding difficulties; Z79.899 Other long term (current) drug therapy; W18.39XA Other fall on same level, initial encounter; Y93.89 Activity, other specified; Y92.89 Other specified places as the place of occurrence of the external cause; Y99.8 Other external cause status
CPT/HCPCS: 36415; 36430; 80048; 80053; 80076; 82140; 82274; 82607; 82728; 83540; 83550; 85007; 85014; 85018; 85025; 85027; 85045; 86850; 86900; 86901; 86920; C9113; J0456; J2212; J2543; J3010; J7050; J7120; P9016; 92526-GN; 92610-GN; 97116-GP; 97530-GO; 97530-GP; 97535-GO; G0378; J7030